=== PATIENT | female | born 1955 | race Caucasian/White ===

== ENCOUNTER 2018-11-25 09:00 | Day surgery (SDC) | payer OTHER ==
--- NOTE | 2018-11-24 16:20 | RAD REPORT ---
EXAM DESCRIPTION: RAD - Chest Pa And Lat (2 Views) - 11/24/2018 4:08 pm CLINICAL HISTORY: preop Chest pain. COMPARISON: CHEST SINGLE VIEW dated 03/23/2011 FINDINGS: The lungs are clear. The heart is normal in size. No displaced fractures. IMPRESSION: No acute or concerning finding suspected.
[2018-11-24 16:24] LABS: Absolute Lymphocytes (CBC) 2.5 K/uL (0.7-4.9); Absolute Monocytes 0.6 K/uL (0.1-1.3); Absolute Neutrophil 4.8 K/uL (1.8-8.0); Basophils % 0.4 % (0-1.3); Hematocrit 44.2 % (36.0-45.0); Lymphocytes % 30.5 % (15.3-44.8); MPV 7.5 fL (7.6-11.3); Monocytes % 7.9 % (3.3-12.3)
[2018-11-24 16:28] LABS: Protime INR 1.01
[2018-11-24 16:33] LABS: Potassium 4.3 mmol/L (3.5-5.1)
--- NOTE | 2018-11-25 07:40 | EKG ---
Test Date: 2018-11-24 Test Time: 15:53:44 X Ray Service Technician: ASIYA MEASUREMENT RESULTS: Intervals: Rate: 68 RI: 174 QRSD: 80 QT: 414 QTc: 440 [place]: P: 48 RI: 174 QRS: 29 T: 68 INTERPRETIVE STATEMENTS: Normal sinus rhythm Cannot rule out Anterior infarct, age undetermined Abnormal ECG Compared to ECG 09/17/2001 18:04:00 No significant changes Electronically Signed On 11-25-18 07:38:55 CDT by Weston Cook
--- OUTSIDE RECORDS SUMMARY | 2018-11-25 09:04 | XMS REPORT ---
:1955 Author Organization [employer] Care Team Providers Name Role Phone Samm Corrales Provider Role Unavailable Allergies No Known Allergies Problems Problem Type Condition Code Onset Dates Condition Status Problem Arthritis of knee, left M17.12 Active Problem Arthritis of knee, right M17.11 Active Problem Tear of right rotator cuff, M75.101 Active unspecified tear extent Medications No Known Medications Results No Known Results Summary Purpose [employer] Submission
--- OUTSIDE RECORDS SUMMARY | 2018-11-25 09:04 | XMS REPORT ---
:1955 Author Organization [employer] Care Team Providers Name Role Phone Samm Corrales Provider Role Unavailable Allergies, Adverse Reactions, Alerts Substance Reaction Event Type N.K.D.A. Info Not Available Non Drug Allergy Problems Problem Type Condition Code Onset Dates Condition Status Assessment Tear of right rotator cuff, M75.101 Active unspecified tear extent Problem Arthritis of knee, left M17.12 Active Problem Arthritis of knee, right M17.11 Active Problem Tear of right rotator cuff, M75.101 Active unspecified tear extent Assessment Acute bursitis of right shoulder M75.51 Active Assessment Impingement syndrome of right M75.41 Active shoulder Assessment Pain, joint, shoulder, right M25.511 Active Medications Medication Code Code Instructions Start End Status Dosage System Date Date Montelukast [facility] 54151822408 10 MG Oral Active not Sodium defined Rosuvastatin ND 08001266025 40 MG Oral Active not Calcium defined Levothyroxine ND 76817168861 50 MCG Oral Active not Sodium defined Results No Known Results Summary Purpose [employer] Submission
--- OUTSIDE RECORDS SUMMARY | 2018-11-25 09:04 | XMS REPORT ---
:1955 Author Organization [employer] Care Team Providers Name Role Phone Samm Corrales Provider Role Unavailable Allergies, Adverse Reactions, Alerts Substance Reaction Event Type N.K.D.A. Info Not Available Non Drug Allergy Problems Problem Type Condition Code Onset Dates Condition Status Problem Arthritis of knee, right M17.11 Active Problem Arthritis of knee, left M17.12 Active Assessment Arthritis of knee, left M17.12 Active Assessment Arthritis of knee, right M17.11 Active Assessment Acute pain of left knee M25.562 Active Assessment Acute pain of right knee M25.561 Active Medications Medication Code Code Instructions Start End Status Dosage System Date Date Montelukast [facility] 46602652003 10 MG Oral Active not defined Sodium Medrol ND 55405884650 4 MG Orally as Feb 17, Active as directed directed 2018 Ketoconazole ND 86157675575 2 % External Active not defined Tramadol HCl ND 98425061612 50 MG Orally Feb 17, Active 1 tablet as every 6 hrs 2018 needed Levothyroxine ND 69206736444 50 MCG Oral Active not defined Sodium Rosuvastatin ND 59661372921 40 MG Oral Active not defined Calcium Results No Known Results Summary Purpose [facility]
--- OUTSIDE RECORDS SUMMARY | 2018-11-25 09:04 | XMS REPORT ---
[...] syndrome of right M75.41 Active shoulder Assessment Acute pain of right shoulder M25.511 Active Medications Medication Code Code Instructions Start End Status Dosage System Date Date Rosuvastatin ND 51968469429 40 MG Oral Active not Calcium defined Montelukast ND 98460167442 10 MG Oral Active not Sodium defined Levothyroxine ND 03622803793 50 MCG Oral Active not Sodium defined Ketoconazole ND 77155842588 2 % External Active not defined Results Name Result Date Reference Range Unit Abnormality Flag MRI : Shoulder, right Summary Purpose [employer]Works Submission
--- OUTSIDE RECORDS SUMMARY | 2018-11-25 09:04 | XMS REPORT ---
[...] End Status Dosage System Date Date Rosuvastatin [facility] 79998242926 40 MG Oral Active not Calcium defined Montelukast [facility] 38971219114 10 MG Oral Active not Sodium defined Levothyroxine ND 88468322290 50 MCG Oral Active not Sodium defined Results No Known Results Summary Purpose [employer]ClinicalWorks Submission
--- OUTSIDE RECORDS SUMMARY | 2018-11-25 09:04 | XMS REPORT ---
[...] Medications Medication Code Code Instructions Start End Date Status Dosage System Date Levothyroxine [facility] 10857880847 50 MCG Oral Active not Sodium defined Mobic ND 45995431872 7.5 MG Orally August Active 1 tablet Once a day 2018 Rosuvastatin ND 12460627282 40 MG Oral Active not Calcium defined Montelukast ND 68456813522 10 MG Oral Active not Sodium defined Results No Known Results Summary Purpose [employer]Works Submission
[2018-11-25] MEDS ORDERED: Ringers Lactate 1,000 ML IV ONE ×2 (09:33→12:30)
[2018-11-25] MEDS ORDERED: CEFAZOLIN/SWI 2gm 2 GM/20 ML SYR ONE (09:34)
[2018-11-25] MEDS ORDERED: PROPOFOL 200 MG/20 ML VIAL IV ONE (10:02)
[2018-11-25] MEDS ORDERED: ROCURONIUM 50 MG/5 ML VIAL IV ONE (10:02)
[2018-11-25] MEDS ORDERED: MIDAZOLAM HCL 2 MG/2 ML INJ ONE (10:02)
[2018-11-25] MEDS ORDERED: FENTANYL CITR 100 MCG/2 ML ONE (10:02)
[2018-11-25] MEDS ORDERED: LIDOCAINE 2% MPF 5 ML VIAL ONE (10:02)
[2018-11-25] MEDS ORDERED: NS 0.9% VIAL 10 ML ONE ×2 (10:03→12:30)
[2018-11-25] MEDS ORDERED: EPINEPHRINE/PF 1 MG/ML AMP ONE (10:15)
[2018-11-25] MEDS ORDERED: DEXAMETHASONE 10 MG/ML VIAL ONE ×2 (10:44→11:39)
[2018-11-25] MEDS ORDERED: ROPLVACAINE HCL 20 ML ONE (10:44)
[2018-11-25] MEDS ORDERED: EPHEDRINE SULF 50 MG/ML VIAL ONE (11:32)
[2018-11-25] MEDS ORDERED: ONDANSETRON 4 MG/2 ML VIAL ONE (11:37)
[2018-11-25] MEDS ORDERED: Phenylephrine HCl 10 MG/ML 1 ML VIAL ONE (12:29)
--- NOTE | 2018-11-25 13:04 | P.BOP ---
Preoperative diagnosis: right rotator cuff tear, bicipital tenosynovitis, impingement syndrome Postoperative diagnosis: same, right shoulder SLAP tear Primary procedure: right shoulder arthroscopic rotator cuff repair Secondary procedure: right shoulder arthroscopic SLAP debridement w/ biceps tenotomy Other procedure(s): right shoulder arthroscopic subacromial decompression Veterans Adviser: NONE,NONE Estimated blood loss: <10 cc Specimen: none Findings: see dictation Anesthesia: General Complications: None Implants: 1- 5.5 mm Arthrex corkscrew, 1- 4.75 mm Arthrex swivelock Fluids & blood products: per anethesia record Transferred to: Recovery Room Condition: Good
--- NOTE | 2018-11-25 13:58 | RAD REPORT ---
EXAM DESCRIPTION: RAD - Shoulder 1 View - 11/25/2018 1:43 pm CLINICAL HISTORY: s/p R RCR, SAD COMPARISON: Shoulder Rt Wo Cont dated 07/09/2018 FINDINGS: Postoperative single projection of the right shoulder is submitted. AC joint degenerative changes are noted. Mild glenohumeral arthritic changes also present. No fractures suspected.
[2018-11-25 15:34] VITALS: TEMP 97.3
[2018-11-25 15:36] VITALS: BP 148/68; O2SAT 95
--- NOTE | 2018-11-26 13:29 | OP ---
Date of Procedure: 11/25/2018 Surgeon: Samm Corrales MD Preoperative Diagnoses: 1.Right shoulder rotator cuff tear. 2.Right shoulder bicipital tenosynovitis. 3.Right shoulder impingement syndrome. Postoperative Diagnoses: 1.Right shoulder rotator cuff tear. 2.Right shoulder bicipital tenosynovitis. 3.Right shoulder impingement syndrome. 4.Right shoulder SLAP tear. Procedure Performed: 1.Right shoulder arthroscopic rotator cuff repair. 2.Right shoulder arthroscopic biceps tenotomy with SLAP tear debridement. 3.Right shoulder arthroscopic subacromial decompression. Anesthesia: General endotracheal. Fluids: Per Anesthesia record. Estimated Blood Loss: Less than 10 cc. Implants: 1.One 5.5 mm Arthrex corkscrew. 2.One 4.75 mm Arthrex SwiveLock. Complications: None. Indication For Procedure: Erin is a 63-year-old female, who presented to my clinic with signs, sym ptoms, and MRI findings consistent with a right shoulder rotator cuff tear, bicipital tenosynovitis, and impingement syndrome. The patient failed conservative treatment measures including corticosteroi d injection as well as a home exercise program. I discussed with the patient at length risks and keila efits associated with operative and nonoperative treatment. She expressed understanding and elected to proceed with operative treatment. Description Of Procedure: After informed consent was obtained, the patient was identified in the pre operative holding area. The right upper extremity was marked. The patient was brought back to the P ACU and underwent interscalene block to the right upper extremity performed by Anesthesia. She was t hen taken back to the operating room, transferred to the operating table in a supine fashion and plac ed under general endotracheal anesthesia. She was placed in the beach chair position with her extrem ities well padded. The right upper extremity was then prepped and draped in the usual sterile fashio n. A time-out was initiated. The correct patient and procedure were confirmed and identified. The patient did receive her preoperative prophylactic antibiotics. The right upper extremity was then ra nged she has near full range of motion without any significant instability noted to the ri t shoulder. Attention was first taken . A spinal needle was introduced into the posteri or portal position and shoulder joint was injected with 30 cc of normal saline to distend the capsule . Posterior portal was created as well as an anterior portal. Diagnostic arthroscopy was performed. The patient was noted to have some inflammatory changes around her superior labrum as wel l as noted to be type 2 SLAP tear. There was also noted to be some hyperemia within the biceps tendo n as well as the anterior capsule and the rotator interval was debrided. Using a meniscal bitter, bi ceps tenotomy was performed. The biceps was released fully. Next, attention was taken. The anterio r and posterior labrum was found to be stable to probe. There were no loose bodies within the axilla ry pouch. Subscapularis was found to be intact. However, the articular surface of the anterior supr aspinatus and the lateral portal was created. There was noted to be a full-thickness tear joint. The area was marked using PDS suture. The arthroscope was then brought into subacromial spa ce. Subacromial bursectomy was performed. The area was marked. A PDS suture was identified and the re was noted to be a full-thickness tear with anterior supraspinatus tear. The rotator cu ff tear was debrided using arthroscopic shaver tuberosity. The area of the footprint was then debrided using arthroscopic shaver to create a bleeding bony bed. A lateral cannula was then pl aced. A single 5.5-mm Arthrex corkscrew was placed just lateral to the articular surface was double loaded anchor. Sutures were then passed through the supraspinatus tear in an anterior to posterior fashion and horizontal mattress type fashion. The sutures were then tied. all 4 sutures were brought laterally for lateral row fixation. There was good overall reduction of the s upraspinatus. There was a small dog-ear which was tied down with the central suture line from the la teral row anchor and there was good overall reduction of the rotator cuff tear. Next, there was note d to be some fraying of the coracoacromial ligament. Undersurface of the acromion was then debrided using an arthroscopic shaver and radiofrequency ablator. A subacromial decompression was performed u sing arthroscopic gabriela as well as radiofrequency ablator. Acromioplasty was performed using arthrosc opic gabriela and to a point where there was no undersurface of the acromion spurring. There was no impi ngement noted. The arthroscopic instruments were then removed without complication and the wound and were approximated using a 2-0 Vicryl and portals were approximated using a 3-0 Monocryl. Sterile dressings were applied. The patient was placed in a shoulder immobilizer, awakened, and tra nsferred to PACU in stable condition. Postoperative Plan: The patient will begin physical therapy in 2 weeks and follow the small rotator cuff repair protocol and she will be nonweightbearing. She will follow up later this week for wound check. NED/NEIDA Voice ID: [id number] Report ID: [id number]
== END 2018-11-25 14:45 | disposition home or self-care (01) ==
LOC: OR 09:00
PROVIDERS: ATTEND Orthopaedic Surgery Sports Medicine
PROC: 0RNJ4ZZ Release Right Shoulder Joint, Percutaneous Endoscopic Approach (ICD-10-PCS; 2018-11-25)
PROC: 0LM14ZZ Reattachment of Right Shoulder Tendon, Percutaneous Endoscopic Approach (ICD-10-PCS; principal; 2018-11-25 10:45)
DX: M75.121 Complete rotator cuff tear or rupture of right shoulder, not specified as traumatic (principal); M75.21 Bicipital tendinitis, right shoulder; M75.41 Impingement syndrome of right shoulder; S43.431A Superior glenoid labrum lesion of right shoulder, initial encounter; X58.XXXA Exposure to other specified factors, initial encounter; E78.00 Pure hypercholesterolemia, unspecified; Z79.899 Other long term (current) drug therapy
CPT/HCPCS: 36415; 71046; 73020; 80048; 85025; 85610; 85730; 93005; J0171; J0690; J1100; J2250; J2370; J2405; J2704; J2795; J3010

== ENCOUNTER 2021-02-08 14:32 | Emergency (ER) | payer BC, OTHER ==
--- OUTSIDE RECORDS SUMMARY | 2021-02-08 14:35 | XMS REPORT | Continuity of Care Document ---
:1955 Author Organization [facility] t Address [address] [place] [address] Care Team Providers Name Role Phone Doctor Unassigned, Name Attending Clinician Unavailable Problems Condition Condition Condition Status Onset Resolution Last Treating Co mments Source Name Details Category Date Date Treatment Clinician Date Arthritis Arthritis Problem Active [facility], [facility] Arthritis Arthritis Problem Active [facility], [facility] Tear of Tear of Problem Active [facility] right right [facility] - rotator rotator [facility] cuff, cuff, l unspecifie unspecifie Ou tpati d tear d tear ent extent extent Clinics Primary Primary Problem Active [facility] osteoarthr osteoarthr [facility] - itis of itis of [facility] both knees both knees l Outpati ent Clinics Allergies, Adverse Reactions, Alerts This patient has no known allergies or adverse reactions. Medications Ordered Filled Start Stop Current Ordering Indication Dosage Frequency Signature Comments Components Source Medication Medication Date Date Medication? Clinician (SIG) Name Name Durolane Durolane 2018-06 Yes Samm as [facility] Cor[facility] directed [facility] Rosuvastati Rosuvastati Yes Samm not [facility] n Calcium n Calcium [place]es defined [facility] Levothyroxi Levothyroxi Yes Samm not [facility] ne Sodium ne Sodium [place]es defined [facility] Montelukast Montelukast Yes Samm not [facility] Sodium Sodium [place] defined [facility] Fluoxetine Fluoxetine Yes Samm TAKE [address] [facility] HCl HCl Corrales CAPSULE BY [facility] - MOUTH ONCE [facility] DAILY [facility] ent [facility] Procedures This patient has no known procedures. Encounters Start End Encounter Admission Attending Care Care Encounter Source Date/Time Date/Time Type Type Clinicians Facility Department ID 2020-07-19 2020-07-19 Orders Doctor ROLAND [id number] 00:00:00 00:00:00 Only Unassigned, HITESH [id number] [place] [facility] [id number] 2020-01-17 2020-01-17 [facility] [id number] [facility] 11:00:00 11:00:00 [facility] 2019-12-30 2019-12-30 [facility] [id number] [facility] 15:30:00 15:30:00 [facility] 2019-12-22 2019-12-22 [facility] [id number] [facility] [address] 11:00:00 11:00:00 t [facility] 2019-12-06 2019-12-06 [facility] [id number] [facility] 13:39:00 13:39:00 t [facility] 2019-11-10 2019-11-10 [facility] [id number] [facility] 14[facility]42:00 14:42:00 t [facility] 2019-11-04 2019-11-04 [facility] [id number] [facility] 15[facility]45:00 15:45:00 t [facility] 2019-09-06 2019-09-06 [facility] [id number] [facility] 15:30:00 15:30:00 t [facility] ent Clinics 2019-04-12 2019-04-12 [facility] [id number] [facility] [address] 11:44:00 11:44:00 t [facility] 2019-02-23 2019-02-23 [facility] [id number] [facility] 16:22:00 16:22:00 t [facility] 2019-02-23 2019-02-23 [facility] [id number] [facility] 15:30:00 15:30:00 t [facility] 2019-02-09 2019-02-09 [facility] [id number] [facility] 13:26:00 13:26:00 t [facility] ent Clinics 2019-02-03 2019-02-03 [facility] [id number] [facility] 10:10:00 10:10:00 t [facility] 2019-01-12 2019-01-12 [facility] [id number] [address] 16[facility]53:00 16:53:00 t [facility] Clinics 2019-01-12 2019-01-12 [facility] [id number] 15:00:00 15:00:00 t [facility] 2019-01-05 2019-01-05 [facility] [id number] [address] 12[facility]43:00 12:43:00 t [facility] Clinics 2019-01-04 2019-01-04 [facility] [id number] [facility] 16:36:00 16:36:00 t [facility] ent Clinics 2018-12-17 2018-12-17 [facility] [id number] [address] 10:00:00 10:00:00 t [facility] 2018-12-08 2018-12-08 [facility] [id number] 08[facility]40:00 08:40:00 t [facility] 2018-11-27 2018-11-27 [facility] [id number] [facility] 10:00:00 10:00:00 t [facility] 2018-10-26 2018-10-26 [facility] [id number] [facility] 15:30:00 15:30:00 t [facility] 2018-09-14 2018-09-14 [facility] [id number] [address] 15:30:00 15:30:00 t [facility] 2018-07-17 2018-07-17 [facility] [id number] [facility] [address] 08:30:00 08:30:00 t [facility] 2018-07-09 2018-07-09 [facility] [id number] [facility] 20:39:00 20:39:00 t [facility] 2018-07-08 2018-07-08 [facility] [id number] [address] 12:30:00 12:30:00 t [facility] Clinics 2018-07-07 2018-07-07 Outpatient Catrachita Domínguezt [id number] [facility] 15:00:00 15:00:00 t [facility] 2018-02-17 2018-02-17 Outpatient Catrachita Villavicencio [id number] [facility] 08:30:00 08:30:00 t Bone [facility] Results This patient has no known results.
--- NOTE | 2021-02-08 16:07 | RAD REPORT ---
EXAM DESCRIPTION: RAD - Foot Left 3 View - 02/08/2021 3:56 pm CLINICAL HISTORY: PAIN COMPARISON: No comparisons FINDINGS: No acute fracture seen. Mild soft tissue swelling is seen about the forefoot. Mild hallux valgus is present. Large calcaneal spurs are evident.
--- NOTE | 2021-02-08 16:17 | EDPHYS ---
Physician Documentation [facility] Name: Erin Bray Age: 65 yrs Sex: Female : 1955 Arrival Date: 02/08/2021 Time: 14:36 Bed Waiting Private MD: ED Physician Raymond Mckeon HPI: 02/08 16:11 This 65 yrs old Female presents to ER via Wheelchair with complaints of Foot rn Pain. 16:11 The patient presents with an injury, pain. The complaints affect the left foot. rn Context: The problem was sustained at work, resulted from Walking. Onset: The symptoms/episode began/occurred today. Modifying factors: The symptoms are alleviated by elevation of extremity, sitting, the symptoms are aggravated by weight bearing, movement. Associated signs and symptoms: Pertinent negatives: fever, swelling, weakness. Severity of symptoms: At their worst the symptoms were moderate, in the emergency department the symptoms have improved. The patient has not experienced similar symptoms in the past. The patient has not recently seen a physician. Reports at work, walking, stepped on floor and felt and heard a pop in the left bottom foot. Reports pain to bottom left foot that improves with rest and elevation, hurts more with ambulation. No swelling or discoloration.. Historical: - Allergies: 15:04 No Known Allergies; kg - Home Meds: 15:04 Ethel 60 mg Oral tab [Active]; levothyroxine 50 mcg tab 1 tab once daily [Active]; kg Lipitor 40 mg Oral tab 1 tab once daily [Active]; Prozac 20 mg Oral cap 1 cap bedtime [Active]; Singulair 10 mg Oral tab 1 tab once daily [Active]; oxybutynin chloride Oral [Active]; - PMHx: 15:04 High Cholesterol; seasonal allergies; Hypothyroidism; stress incontence; night sweats; kg - PSHx: 15:04 Right rotator sx; Left wrist sx; Right knee sx; kg - Immunization history:: Adult Immunizations not up to date, Client reports having NOT received the Covid vaccine. - Social history:: Smoking status: Patient denies any tobacco usage or history of. - Family history:: not pertinent. - Hospitalizations: : No recent hospitalization is reported. ROS: 16:11 Constitutional: Negative for fever, chills, and weight loss, MS/Extremity: Positive for rn injury and pain to left bottom foot Neuro: Negative for numbness and tingling Exam: 16:11 Constitutional: This is a well developed, well nourished patient who is awake, alert, rn and in no acute distress. MS/ Extremity: Pulses equal, no cyanosis. Neurovascular intact. Full, normal range of motion. Mild tenderness along plantar surface of foot without any discoloration or open wounds. No bony tenderness. Vital Signs: 15:01 Resp 20; Weight 136.08 kg (R); Height 5 ft. 7 in. (170.18 cm) (R); Pain 0/10; kg 15:09 BP 159 / 57; Pulse 66; Resp 20; Temp 97.7(TE); Pulse Ox 95% on R/A; kg 15:01 Body Mass Index 46.99 (136.08 kg, 170.18 cm) kg MDM: 16:11 Differential diagnosis: fracture, sprain, arthritis. Differential diagnosis: Sprain, rn tendon injury, partial tear. Data reviewed: vital signs, nurses notes. Test interpretation: by ED physician or midlevel provider: plain radiologic studies, X-ray left foot negative for acute fracture dislocation. Counseling: I had a detailed discussion with the patient and/or guardian regarding: the historical points, exam findings, and any diagnostic results supporting the discharge/admit diagnosis, radiology results, the need for outpatient follow up, to return to the emergency department if symptoms worsen or persist or if there are any questions or concerns that arise at home. Special discussion: I discussed with the patient/guardian in detail that at this point there is no indication for admission to the hospital. It is understood, however, that if the symptoms persist or worsen the patient needs to return immediately for re-evaluation. ED course: Recommend RICE therapy, told if symptoms do not improve in 10 to 14 days to seek orthopedic or podiatry consultation with possible MRI.. 16:16 Patient medically screened. rn 02/08 15:30 Order name: Foot Left 3 View; Complete Time: 16:11 EDMS Administered Medications: No medications were administered Disposition Summary: 02/08/21 16:16 Discharge Ordered Location: Home rn Problem: new rn Symptoms: have improved rn Condition: Stable rn Diagnosis - Other sprain of left foot rn Followup: rn - With: Private Physician - When: As needed - Reason: Recheck today's complaints, Re-evaluation by your physician Discharge Instructions: - Discharge Summary Sheet rn - Foot Sprain rn Forms: - Medication Reconciliation Form rn - Thank You Letter rn - Antibiotic administrative intern - Prescription Opioid Use rn Signatures: Dispatcher [employer] Raymond Amin MD MD rn Graham, Kristen, RN RN kg Corrections: (The following items were deleted from the chart) 15:30 15:05 Ankle Left 3 View+RAD.RAD.BRZ ordered. EDNV RICKINV
--- NOTE | 2021-02-08 16:17 | ER ---
Nurse's Notes [facility] Name: Erin Bray Age: 65 yrs Sex: Female : 1955 Arrival Date: 02/08/2021 Time: 14:36 Bed Waiting Private MD: Diagnosis: Other sprain of left foot Presentation: 02/08 15:01 Chief complaint: Patient states: Left foot pain. Pt stated, " I was walking and heard a kg loud pop and had instant pain." Pt denies, twisting or falling. This happened at 14:00. Coronavirus screen: Client denies travel out of the [place] in the last 14 days. At this time, unable to obtain information related to travel outside the [place] At this time, the client does not indicate any symptoms associated with coronavirus-19. Ebola Screen: Patient negative for fever greater than or equal to 101.5 degrees Fahrenheit, and additional compatible Ebola Virus Disease symptoms Patient denies exposure to infectious person. Patient denies travel to an Ebola-affected area in the 21 days before illness onset. No symptoms or risks identified at this time. Initial Sepsis Screen: Does the patient meet any 2 criteria? No. Patient's initial sepsis screen is negative. Does the patient have a suspected source of infection? No. Patient's initial sepsis screen is negative. Risk Assessment: Do you want to hurt yourself or someone else? Patient reports no desire to harm self or others. Onset of symptoms was February 08, 2021 at 14:00. 15:01 Method Of Arrival: Wheelchair kg 15:01 Acuity: YOUNG 4 kg Triage Assessment: 15:04 General: Appears in no apparent distress. Behavior is calm, cooperative, appropriate kg for age, quiet. Pain: Complains of pain in Left ankle Pain currently is 0 out of 10 on a pain scale. at worst was 10 out of 10 on a pain scale. level that patient reports is acceptable is 0 out of 10 on a pain scale. Quality of pain is described as. Historical: - Allergies: 15:04 No Known Allergies; kg - Home Meds: 15:04 Ethel 60 mg Oral tab [Active]; levothyroxine 50 mcg tab 1 tab once daily [Active]; kg Lipitor 40 mg Oral tab 1 tab once daily [Active]; Prozac 20 mg Oral cap 1 cap bedtime [Active]; Singulair 10 mg Oral tab 1 tab once daily [Active]; oxybutynin chloride Oral [Active]; - PMHx: 15:04 High Cholesterol; seasonal allergies; Hypothyroidism; stress incontence; night sweats; kg - PSHx: 15:04 Right rotator sx; Left wrist sx; Right knee sx; kg - Immunization history:: Adult Immunizations not up to date, Client reports having NOT received the Covid vaccine. - Social history:: Smoking status: Patient denies any tobacco usage or history of. - Family history:: not pertinent. - Hospitalizations: : No recent hospitalization is reported. Screenin:14 Abuse screen: Denies threats or abuse. Denies injuries from another. Nutritional ss screening: No deficits noted. Tuberculosis screening: Never had TB. Fall Risk None identified. Assessment: 16:14 Reassessment: Patient appears in no apparent distress at this time. Patient and/or ss family updated on plan of care and expected duration. Pain level reassessed. Patient is alert, oriented x 3, equal unlabored respirations, skin warm/dry/pink. Vital Signs: 15:01 Resp 20; Weight 136.08 kg (R); Height 5 ft. 7 in. (170.18 cm) (R); Pain 0/10; kg 15:09 BP 159 / 57; Pulse 66; Resp 20; Temp 97.7(TE); Pulse Ox 95% on R/A; kg 15:01 Body Mass Index 46.99 (136.08 kg, 170.18 cm) kg ED Course: 14:36 Patient arrived in ED. mr 15:03 Triage completed. kg 15:04 Arm band placed on. kg 15:23 Raymond Mckeon MD is Attending Physician. rn 15:55 Foot Left 3 View In Process Unspecified. EDMS 16:14 Patient has correct armband on for positive identification. ss 16:15 No provider procedures requiring assistance completed. Patient did not have IV access ss during this emergency room visit. Administered Medications: No medications were administered Outcome: 16:16 Discharge ordered by . rn 16:30 Discharged to home via wheelchair, with family. ss 16:30 Condition: good 16:30 Discharge instructions given to patient, family, Instructed on discharge instructions, follow up and referral plans. Demonstrated understanding of instructions, follow-up care. 16:31 Patient left the ED. ss Signatures: Dispatcher [employer] Beryl Henry mr Raymond Mckeon MD MD rn Smirch, Shelby, RN RN Anastasia Joshi RN RN kg
[2021-02-08 16:38] VITALS: BP 159/57; TEMP 97.7; O2SAT 95
== END 2021-02-08 16:31 | disposition home or self-care (01) ==
LOC: ER 14:32
DX: S93.692A Other sprain of left foot, initial encounter (principal); X58.XXXA Exposure to other specified factors, initial encounter; Y93.01 Activity, walking, marching and hiking; E03.9 Hypothyroidism, unspecified; E78.00 Pure hypercholesterolemia, unspecified
CPT/HCPCS: 99283

== ENCOUNTER → 2023-07-30 | Emergency (ER) | payer OTHER ==
--- OUTSIDE RECORDS SUMMARY | 2023-07-30 00:17 | XMS REPORT | Continuity of Care Document ---
Author Name Unknown Address [address] [place] [address] [facility] thconnect Address [address] [place] [address] Care Team Providers Care Digital Field Service Technician Name Role Phone MARCELA BOYD Primary Care Physician Unav ailable [email or web address]_S Attending Clinician ALFIE Yoder Attending Clinician Unavailable Roxy Temple MA Attending Clinician Alfie Ching MD Attending Clinician Doctor Unassigned, [place] Attending Clinician U navailable ROSARIO_[email or web address]_S Admitting Clinician Cesar montero Payers Payer Name Policy Type Policy Number Effective Date Expiration Date Source MEDIC[place]: [employer] [id number] 2021-04-23 00:00:00 [employer] INSURANCE [employer] (MEDICARE SUPPLEMENT) [id number] AETNA 53 [id number] [facility] BLUE ESSENTIALS HMO [id number] 2020-02-22 00:00:00 Blue Cross Blue Shield of [place] C1 [id number] [facility] [place] [address] [id number] [facility] Problems Condition Name Condition Details Condition Category Status Onset Date Resolution Date Last Treatment Date Treating Clinician Comments Source Rupture of right rotator cuff Rupture of right rotator cuff Disease Active 07-12 00:00: 00 [facility] [id number] Primary osteoarthr itis, left shoulder Problem Active [facility] [id number] Tear of left rotator cuff, unspecifie d tear extent, unspecifie d whether traumatic Problem Active [facility] Arthritis of right knee Arthritis of right knee Problem Active [facility] Arthritis of left knee Arthritis of knee, left Problem Active [facility] [id number] Primary osteoarthr itis of left knee Problem Active [facility] [id number] Tear of right rotator cuff, unspecifie d tear extent Problem Active [facility] [id number] Primary osteoarthr itis of both knees Problem Active [facility] Osteoarthr itis of knee Osteoarthr itis of knee, unilateral Problem Active [facility] [id number] Primary osteoarthr itis of right knee Problem Active [facility] Arthritis of both knees Arthritis of both knees Problem [facility] Allergies, Adverse Reactions, Alerts Allergy Name Allergy Type Status Severity Reaction(s) Onset Date Inactive Date Treating Clinician Comments Source MELOXICA M DRUG INGREDI Active Unknown-Cmnt 2020-06 00:00: 00 [facility] meloxica m meloxica m Active Unknown [facility] NO KNOWN ALLERGIE S Drug Class Active [facility] Social History Social Habit Start Date Stop Date Quantity Comments Source History of Tobacco Use [facility] Sex Assigned At [facility] Tobacco use and exposure 2020-07-19 00:00:00 2020-07-19 00:00:00 Smokeless tobacco non-user [facility] Alcohol intake 2020-07-19 00:00:00 2020-07-19 00:00:00 Current non-drinker of alcohol (finding) [facility] Smoking Status Start Date Stop Date Source Never Smoker [facility] Medications Ordered Medication Name Filled Medication Name Start Date Stop Date Current Medication? Ordering Clinician Indication Dosage Frequency Signature (SIG) Comments Components Source Kenalog (Triamcinol one) Kenalog (Triamcinol one) 2022-06 0-24 00:00: 00 No 1mL [facility] BUPivacaine HCl BUPivacaine HCl 2022-06 0-24 00:00: 00 No 4mL [facility] Kenalog (Triamcinol one) Kenalog (Triamcinol one) 2022-06 0-24 00:00: 00 No 1mL [facility] BUPivacaine HCl BUPivacaine HCl 2022-06 0-24 00:00: 00 No 4mL [facility] Kenalog (Triamcinol one) Kenalog (Triamcinol one) 2022-06 0-24 00:00: 00 No 1mL [facility] BUPivacaine HCl BUPivacaine HCl 2022-06 0-24 00:00: 00 No 4mL [facility] Kenalog (Triamcinol one) Kenalog (Triamcinol one) 2022-06 0-24 00:00: 00 No 1mL [facility] BUPivacaine HCl BUPivacaine HCl 2022-06 0-24 00:00: 00 No 4mL [facility] Kenalog (Triamcinol one) Kenalog (Triamcinol one) 2022-06 0-24 00:00: 00 No 1mL [facility] BUPivacaine HCl BUPivacaine HCl 2022-06 0-24 00:00: 00 No 4mL [facility] Kenalog (Triamcinol one) Kenalog (Triamcinol one) 2022-06 0-24 00:00: 00 No 1mL [facility] BUPivacaine HCl BUPivacaine HCl 2022-06 0-24 00:00: 00 No 4mL [facility] Kenalog (Triamcinol one) Kenalog (Triamcinol one) 7-25 00:00: 00 No 1mL [facility] Bupivicaine [place] Bupivicaine [place] 0 01-14 00:00: 00 No 4mL [facility] Bupivicaine [place] Bupivicaine [place] 01-14 00:00: 00 No 4mL [facility] Kenalog (Triamcinol one) Kenalog (Triamcinol one) 01-14 00:00: 00 No 1mL [facility] Kenalog (Triamcinol one) Kenalog (Triamcinol one) 0 01-14 00:00: 00 No 1mL [facility] Bupivicaine [place] Bupivicaine [place] 01-14 00:00: 00 No 4mL [facility] Bupivicaine [place] Bupivicaine [place] 01-14 00:00: 00 No 4mL [facility] Kenalog (Triamcinol one) Kenalog (Triamcinol one) 0 01-14 00:00: 00 No 1mL [facility] Kenalog (Triamcinol one) Kenalog (Triamcinol one) 01-14 00:00: 00 No 1mL [facility] Bupivicaine [place] Bupivicaine [place] 01-14 00:00: 00 No 4mL [facility] Bupivicaine [place] Bupivicaine [place] 0 01-14 00:00: 00 No 4mL [facility] Kenalog (Triamcinol one) Kenalog (Triamcinol one) 0 01-14 00:00: 00 No 1mL [facility] Bupivicaine [place] Bupivicaine [place] 0 10-08 00:00: 00 No 4mL [facility] Kenalog (Triamcinol one) Kenalog (Triamcinol one) 0 10-08 00:00: 00 No 1mL [facility] Bupivicaine [place] Bupivicaine [place] 2022-0 4-18 00:00: 00 No 4mL [facility] Kenalog (Triamcinol one) Kenalog (Triamcinol one) 0 4-18 00:00: 00 No 1mL [facility] Bupivicaine [place] Bupivicaine [place] 2022-0 4-18 00:00: 00 No 4mL [facility] Kenalog (Triamcinol one) Kenalog (Triamcinol one) 0 4-18 00:00: 00 No 1mL [facility] Bupivicaine [place] Bupivicaine [place] 0 8-16 00:00: 00 No 2.5mg [facility] Kenalog (Triamcinol one) Kenalog (Triamcinol one) 2021-0 8-16 00:00: 00 No 40mg [facility] Bupivicaine [place] Bupivicaine [place] 2021-0 8-16 00:00: 00 No 2.5mg [facility] Kenalog (Triamcinol one) Kenalog (Triamcinol one) 0 8-16 00:00: 00 No 40mg [facility] Kenalog (Triamcinol one) Kenalog (Triamcinol one) 2021-0 8-16 00:00: 00 No 40mg [facility] Bupivicaine [place] Bupivicaine [place] 2021-0 8-16 00:00: 00 No 2.5mg [facility] Kenalog (Triamcinol one) Kenalog (Triamcinol one) 2021-0 8-16 00:00: 00 No 40mg [facility] Bupivicaine [place] Bupivicaine [place] 2021-0 8-16 00:00: 00 No 2.5mg [facility] Kenalog (Triamcinol one) Kenalog (Triamcinol one) 2021-0 8-16 00:00: 00 No 40mg [facility] Bupivicaine [place] Bupivicaine [place] 2021-0 8-16 00:00: 00 No 2.5mg [facility] Ibuprofen 600 MG Ibuprofen 600 MG 0 -19 00:00: 00 No 1{table t} BID Ibuprofen 600 MG Kenalog (Triamcinol one) Kenalog (Triamcinol one) 0 - 00:00: 00 No 40mg [facility] Bupivicaine [place] Bupivicaine [place] 0 - 00:00: 00 No 2.5mg [facility] Ibuprofen 600 MG Ibuprofen 600 MG 0 - 00:00: 00 No 1{table t} BID Ibuprofen 600 MG Kenalog (Triamcinol one) Kenalog (Triamcinol one) 0 - 00:00: 00 No 40mg [facility] Bupivicaine [place] Bupivicaine [place] 0 - 00:00: 00 No 2.5mg [facility] Ibuprofen 600 MG Ibuprofen 600 MG 0 - 00:00: 00 No 1{table t} BID Ibuprofen 600 MG Kenalog (Triamcinol one) Kenalog (Triamcinol one) 0 11-08 00:00: 00 No 40mg [facility] Bupivicaine [place] Bupivicaine [place] 0 - 00:00: 00 No 2.5mg [facility] Ibuprofen 600 MG Ibuprofen 600 MG 0 11-08 00:00: 00 No 1{table t} BID Ibuprofen 600 MG Kenalog (Triamcinol one) Kenalog (Triamcinol one) 0 - 00:00: 00 No 40mg [facility] Bupivicaine [place] Bupivicaine [place] 0 -19 00:00: 00 No 2.5mg [facility] Ibuprofen 600 MG Ibuprofen 600 MG 0 -19 00:00: 00 No 1{table t} BID Ibuprofen 600 MG Kenalog (Triamcinol one) Kenalog (Triamcinol one) 11-08 00:00: 00 No 40mg [facility] Bupivicaine [place] Bupivicaine [place] 11-08 00:00: 00 No 2.5mg [facility] Ibuprofen 600 MG Ibuprofen 600 MG 0 11-08 00:00: 00 No 1{table t} BID Ibuprofen 600 MG Kenalog (Triamcinol one) Kenalog (Triamcinol one) 11-08 00:00: 00 No 40mg [facility] Bupivicaine [place] Bupivicaine [place] 11-08 00:00: 00 No 2.5mg [facility] Ibuprofen 600 MG Ibuprofen 600 MG 11-08 00:00: 00 No 1{table t} BID Ibuprofen 600 MG Kenalog (Triamcinol one) Kenalog (Triamcinol one) 11-08 00:00: 00 No 40mg [facility] Bupivicaine [place] Bupivicaine [place] 11-08 00:00: 00 No 2.5mg [facility] Ibuprofen 600 MG Ibuprofen 600 MG 11-08 00:00: 00 No 1{table t} BID Ibuprofen 600 MG Kenalog (Triamcinol one) Kenalog (Triamcinol one) 11-08 00:00: 00 No 40mg [facility] Bupivicaine [place] Bupivicaine [place] 11-08 00:00: 00 No 2.5mg [facility] FLUOXETINE 40 mg capsule 08-15 00:00: 00 Yes [id number] TAKE ONE (1) CAPSULE(S) BY MOUTH ONCE A DAY. [facility] FLUOXETINE 40 mg capsule 08-15 00:00: 00 Yes [id number] TAKE ONE (1) CAPSULE(S) BY MOUTH ONCE A DAY. [facility] FLUOXETINE 40 mg capsule 08-15 00:00: 00 Yes [id number] TAKE ONE (1) CAPSULE(S) BY MOUTH ONCE A DAY. [facility] FLUOXETINE 40 mg capsule 2021-0 2-23 00:00: 00 Yes [id number] TAKE ONE (1) CAPSULE(S) BY MOUTH ONCE A DAY. [facility] FLUOXETINE 40 mg capsule 2021-0 2-23 00:00: 00 Yes [id number] TAKE ONE (1) CAPSULE(S) BY MOUTH ONCE A DAY. [facility] oxybutynin XL 5 mg 24 hr tablet 2021-0 2-04 00:00: 00 Yes [id number] 5mg Take 1 tablet by mouth daily. [facility] oxybutynin XL 5 mg 24 hr tablet 2021-0 2-04 00:00: 00 Yes [id number] 5mg Take 1 tablet by mouth daily. [facility] oxybutynin XL 5 mg 24 hr tablet 2021-0 2-04 00:00: 00 Yes [id number] 5mg Take 1 tablet by mouth daily. [facility] oxybutynin XL 5 mg 24 hr tablet 2021-0 2-04 00:00: 00 Yes [id number] 5mg Take 1 tablet by mouth daily. [facility] oxybutynin XL 5 mg 24 hr tablet 2021-0 2-04 00:00: 00 Yes [id number] 5mg Take 1 tablet by mouth daily. [facility] oxybutynin XL 5 mg 24 hr tablet 2021-0 2-04 00:00: 00 Yes [id number] 5mg Take 1 tablet by mouth daily. [facility] Hyalgan 20 mg Hyalgan 20 mg 2020-06 2-21 00:00: 00 No 20mg [facility] Hyalgan 20 mg Hyalgan 20 mg 2020-06 2-21 00:00: 00 No 20mg [facility] Hyalgan 20 mg Hyalgan 20 mg 2020-06 2-21 00:00: 00 No 20mg [facility] Hyalgan 20 mg Hyalgan 20 mg 2020-06 2-21 00:00: 00 No 20mg [facility] Hyalgan 20 mg Hyalgan 20 mg 2020-06 2-21 00:00: 00 No 20mg [facility] Hyalgan 20 mg Hyalgan 20 mg 2020-06 2- 00:00: 00 No 20mg [facility] Hyalgan 20 mg Hyalgan 20 mg 2020-06 2- 00:00: 00 No 20mg [facility] Hyalgan 20 mg Hyalgan 20 mg 2020-06 2- 00:00: 00 No 20mg [facility] Hyalgan 20 mg Hyalgan 20 mg 2020-06 2- 00:00: 00 No 20mg [facility] Hyalgan 20 mg Hyalgan 20 mg 2020-06 2- 00:00: 00 No 20mg [facility] Hyalgan 20 mg Hyalgan 20 mg 2020-06 2- 00:00: 00 No 20mg [facility] Hyalgan 20 mg Hyalgan 20 mg 2020-06 2- 00:00: 00 No 20mg [facility] Hyalgan 20 mg Hyalgan 20 mg 2020-06 2- 00:00: 00 No 20mg [facility] Hyalgan 20 mg Hyalgan 20 mg 2020-06 2- 00:00: 00 No 20mg [facility] Hyalgan 20 mg Hyalgan 20 mg 2020-06 2- 00:00: 00 No 20mg [facility] Hyalgan 20 mg Hyalgan 20 mg 2020-06 2- 00:00: 00 No 20mg [facility] Hyalgan 20 mg Hyalgan 20 mg 2020-06 2-21 00:00: 00 No 20mg [facility] Hyalgan 20 mg Hyalgan 20 mg 2020-06 2-21 00:00: 00 No 20mg [facility] Hyalgan 20 mg Hyalgan 20 mg 2020-06 2-21 00:00: 00 No 20mg [facility] Hyalgan 20 mg Hyalgan 20 mg 2020-06 2-21 00:00: 00 No 20mg [facility] Hyalgan 20 mg Hyalgan 20 mg 2020-06 2-21 00:00: 00 No 20mg [facility] Hyalgan 20 mg Hyalgan 20 mg 2020-06 2-21 00:00: 00 No 20mg [facility] Hyalgan 20 mg Hyalgan 20 mg 2020-06 2- 00:00: 00 No 20mg [facility] Hyalgan 20 mg Hyalgan 20 mg 2020-06 2-14 00:00: 00 No 20mg [facility] Hyalgan 20 mg Hyalgan 20 mg 2020-06 2-14 00:00: 00 No 20mg [facility] Hyalgan 20 mg Hyalgan 20 mg 2020-06 2- 00:00: 00 No 20mg [facility] Hyalgan 20 mg Hyalgan 20 mg 2020-06 2- 00:00: 00 No 20mg [facility] Hyalgan 20 mg Hyalgan 20 mg 2020-06 2- 00:00: 00 No 20mg [facility] Hyalgan 20 mg Hyalgan 20 mg 2020-06 2- 00:00: 00 No 20mg [facility] Hyalgan 20 mg Hyalgan 20 mg 2020-06 2- 00:00: 00 No 20mg [facility] Hyalgan 20 mg Hyalgan 20 mg 2020-06 2- 00:00: 00 No 20mg [facility] Hyalgan 20 mg Hyalgan 20 mg 2020-06 2-14 00:00: 00 No 20mg [facility] Hyalgan 20 mg Hyalgan 20 mg 2020-06 2-14 00:00: 00 No 20mg [facility] Hyalgan 20 mg Hyalgan 20 mg 2020-06 2-14 00:00: 00 No 20mg [facility] Hyalgan 20 mg Hyalgan 20 mg 2020-06 2-14 00:00: 00 No 20mg [facility] Hyalgan 20 mg Hyalgan 20 mg 2020-06 2-14 00:00: 00 No 20mg [facility] Hyalgan 20 mg Hyalgan 20 mg 2020-06- 00:00: 00 No 20mg [facility] Hyalgan 20 mg Hyalgan 20 mg 2020-06- 00:00: 00 No 20mg [facility] Hyalgan 20 mg Hyalgan 20 mg 2020-06 00:00: 00 No 20mg [facility] Hyalgan 20 mg Hyalgan 20 mg 2020-06 00:00: 00 No 20mg [facility] Hyalgan 20 mg Hyalgan 20 mg 2020-06 00:00: 00 No 20mg [facility] Hyalgan 20 mg Hyalgan 20 mg 2020-06 00:00: 00 No 20mg [facility] Hyalgan 20 mg Hyalgan 20 mg 2020-06 00:00: 00 No 20mg [facility] Hyalgan 20 mg Hyalgan 20 mg 2020-06 00:00: 00 No 20mg [facility] Bupivicaine [place] Bupivicaine [place] 2020-06 2 00:00: 00 No 2.5mg [facility] Hyalgan 20 mg Hyalgan 20 mg 2020-06 00:00: 00 No 20mg [facility] Hyalgan 20 mg Hyalgan 20 mg 2020-06 2- 00:00: 00 No 20mg [facility] Kenalog (Triamcinol one) Kenalog (Triamcinol one) 2020-06 2- 00:00: 00 No 40mg [facility] Bupivicaine [place] Bupivicaine [place] 2020-06 2- 00:00: 00 No 2.5mg [facility] Kenalog (Triamcinol one) Kenalog (Triamcinol one) 2020-06 2- 00:00: 00 No 40mg [facility] Bupivicaine [place] Bupivicaine [place] 2020-06 2 00:00: 00 No 2.5mg [facility] Hyalgan 20 mg Hyalgan 20 mg 2020-06 2 00:00: 00 No 20mg [facility] Hyalgan 20 mg Hyalgan 20 mg 2020-06 2 00:00: 00 No 20mg [facility] Kenalog (Triamcinol one) Kenalog (Triamcinol one) 2020-06 2 00:00: 00 No 40mg [facility] Bupivicaine [place] Bupivicaine [place] 2020-06 00:00: 00 No 2.5mg [facility] Kenalog (Triamcinol one) Kenalog (Triamcinol one) 2020-06 2 00:00: 00 No 40mg [facility] Bupivicaine [place] Bupivicaine [place] 2020-06 00:00: 00 No 2.5mg [facility] Hyalgan 20 mg Hyalgan 20 mg 2020-06 2 00:00: 00 No 20mg [facility] Hyalgan 20 mg Hyalgan 20 mg 2020-06 00:00: 00 No 20mg [facility] Kenalog (Triamcinol one) Kenalog (Triamcinol one) 2020-06 2 00:00: 00 No 40mg [facility] Bupivicaine [place] Bupivicaine [place] 2020-06 2 00:00: 00 No 2.5mg [facility] Kenalog (Triamcinol one) Kenalog (Triamcinol one) 2020-06 2 00:00: 00 No 40mg [facility] Bupivicaine [place] Bupivicaine [place] 2020-06 2 00:00: 00 No 2.5mg [facility] Hyalgan 20 mg Hyalgan 20 mg 2020-06 2- 00:00: 00 No 20mg [facility] Kenalog (Triamcinol one) Kenalog (Triamcinol one) 2020-06 2 00:00: 00 No 40mg [facility] Bupivicaine [place] Bupivicaine [place] 2020-06 00:00: 00 No 2.5mg [facility] Kenalog (Triamcinol one) Kenalog (Triamcinol one) 2020-06 2 00:00: 00 No 40mg [facility] Hyalgan 20 mg Hyalgan 20 mg 2020-06 00:00: 00 No 20mg [facility] Bupivicaine [place] Bupivicaine [place] 2020-06 00:00: 00 No 2.5mg [facility] Hyalgan 20 mg Hyalgan 20 mg 2020-06 00:00: 00 No 20mg [facility] Kenalog (Triamcinol one) Kenalog (Triamcinol one) 2020-06 2 00:00: 00 No 40mg [facility] Bupivicaine [place] Bupivicaine [place] 2020-06 00:00: 00 No 2.5mg [facility] Kenalog (Triamcinol one) Kenalog (Triamcinol one) 2020-06 00:00: 00 No 40mg [facility] Hyalgan 20 mg Hyalgan 20 mg 2020-06 2 00:00: 00 No 20mg [facility] Bupivicaine [place] Bupivicaine [place] 2020-06 00:00: 00 No 2.5mg [facility] Hyalgan 20 mg Hyalgan 20 mg 2020-06 2 00:00: 00 No 20mg [facility] Kenalog (Triamcinol one) Kenalog (Triamcinol one) 2020-06 2- 00:00: 00 No 40mg [facility] Bupivicaine [place] Bupivicaine [place] 2020-06 2 00:00: 00 No 2.5mg [facility] Kenalog (Triamcinol one) Kenalog (Triamcinol one) 2020-06 2 00:00: 00 No 40mg [facility] Hyalgan 20 mg Hyalgan 20 mg 2020-06 2 00:00: 00 No 20mg [facility] Hyalgan 20 mg Hyalgan 20 mg 2020-06 2 00:00: 00 No 20mg [facility] Kenalog (Triamcinol one) Kenalog (Triamcinol one) 2020-06 00:00: 00 No 40mg [facility] Bupivicaine [place] Bupivicaine [place] 2020-06 00:00: 00 No 2.5mg [facility] Bupivicaine [place] Bupivicaine [place] 2020-06 00:00: 00 No 2.5mg [facility] Kenalog (Triamcinol one) Kenalog (Triamcinol one) 2020-06 2 00:00: 00 No 40mg [facility] Hyalgan 20 mg Hyalgan 20 mg 2020-06 00:00: 00 No 20mg [facility] Hyalgan 20 mg Hyalgan 20 mg 2020-06 00:00: 00 No 20mg [facility] Kenalog (Triamcinol one) Kenalog (Triamcinol one) 2020-06 2 00:00: 00 No 40mg [facility] Bupivicaine [place] Bupivicaine [place] 2020-06 2 00:00: 00 No 2.5mg [facility] Bupivicaine [place] Bupivicaine [place] 2020-06 2 00:00: 00 No 2.5mg [facility] Kenalog (Triamcinol one) Kenalog (Triamcinol one) 2020-06 2- 00:00: 00 No 40mg [facility] Hyalgan 20 mg Hyalgan 20 mg 2020-06 2 00:00: 00 No 20mg [facility] Hyalgan 20 mg Hyalgan 20 mg 2020-06 2 00:00: 00 No 20mg [facility] Kenalog (Triamcinol one) Kenalog (Triamcinol one) 2020-06 2 00:00: 00 No 40mg [facility] Bupivicaine [place] Bupivicaine [place] 2020-06 00:00: 00 No 2.5mg [facility] Hyalgan 20 mg Hyalgan 20 mg 2020-06 00:00: 00 No 20mg [facility] Kenalog (Triamcinol one) Kenalog (Triamcinol one) 2020-06 00:00: 00 No 40mg [facility] Bupivicaine [place] Bupivicaine [place] 2020-06 00:00: 00 No 2.5mg [facility] Hyalgan 20 mg Hyalgan 20 mg 2020-06 00:00: 00 No 20mg [facility] Kenalog (Triamcinol one) Kenalog (Triamcinol one) 2020-06 00:00: 00 No 40mg [facility] Bupivicaine [place] Bupivicaine [place] 2020-06 00:00: 00 No 2.5mg [facility] Hyalgan 20 mg Hyalgan 20 mg 2020-06 2 00:00: 00 No 20mg [facility] Kenalog (Triamcinol one) Kenalog (Triamcinol one) 2020-06 2 00:00: 00 No 40mg [facility] Bupivicaine [place] Bupivicaine [place] 2020-06 00:00: 00 No 2.5mg [facility] Hyalgan 20 mg Hyalgan 20 mg 2020-06 2- 00:00: 00 No 20mg [facility] Kenalog (Triamcinol one) Kenalog (Triamcinol one) 2020-06 00:00: 00 No 40mg [facility] Bupivicaine [place] Bupivicaine [place] 2020-06 00:00: 00 No 2.5mg [facility] Hyalgan 20 mg Hyalgan 20 mg 2020-06 00:00: 00 No 20mg [facility] Kenalog (Triamcinol one) Kenalog (Triamcinol one) 2020-06 00:00: 00 No 40mg [facility] Bupivicaine [place] Bupivicaine [place] 2020-06 00:00: 00 No 2.5mg [facility] atorvastati n (LIPITOR) 40 mg tablet 07-19 14:57: 34 Yes 40mg Take 40 mg by mouth at bedtime. [facility] LEVOTHYROXI NE SODIUM (LEVOTHYROX INE ORAL) 07-19 14:57: 34 Yes Take by mouth. [facility] FEXOFENADIN E HCL (FAVIOLA ORAL) 07-19 14:57: 34 Yes Take by mouth. [facility] pumpkin seed extract/soy germ (AZO BLADDER CONTROL ORAL) 07-19 14:57: 34 Yes Take by mouth. [facility] atorvastati n (LIPITOR) 40 mg tablet 07-19 14:57: 34 Yes 40mg Take 40 mg by mouth at bedtime. [facility] LEVOTHYROXI NE SODIUM (LEVOTHYROX INE ORAL) 07-19 14:57: 34 Yes Take by mouth. [facility] FEXOFENADIN E HCL (FAVIOLA ORAL) 07-19 14:57: 34 Yes Take by mouth. [facility] pumpkin seed extract/soy germ (AZO BLADDER CONTROL ORAL) 07-19 14:57: 34 Yes Take by mouth. [facility] atorvastati n (LIPITOR) 40 mg tablet 07-19 14:57: 34 Yes 40mg Take 40 mg by mouth at bedtime. [facility] LEVOTHYROXI NE SODIUM (LEVOTHYROX INE ORAL) 07-19 14:57: 34 Yes Take by mouth. [facility] FEXOFENADIN E HCL (FAVIOLA ORAL) 07-19 14:57: 34 Yes Take by mouth. [facility] pumpkin seed extract/soy germ (AZO BLADDER CONTROL ORAL) 07-19 14:57: 34 Yes Take by mouth. [facility] atorvastati n (LIPITOR) 40 mg tablet 07-19 14:57: 34 Yes 40mg Take 40 mg by mouth at bedtime. [facility] LEVOTHYROXI NE SODIUM (LEVOTHYROX INE ORAL) 07-19 14:57: 34 Yes Take by mouth. [facility] FEXOFENADIN E HCL (FAVIOLA ORAL) 07-19 14:57: 34 Yes Take by mouth. [facility] pumpkin seed extract/soy germ (AZO BLADDER CONTROL ORAL) 07-19 14:57: 34 Yes Take by mouth. [facility] atorvastati n (LIPITOR) 40 mg tablet 07-19 14:57: 34 Yes 40mg Take 40 mg by mouth at bedtime. [facility] LEVOTHYROXI NE SODIUM (LEVOTHYROX INE ORAL) 07-19 14:57: 34 Yes Take by mouth. [facility] FEXOFENADIN E HCL (FAVIOLA ORAL) 07-19 14:57: 34 Yes Take by mouth. [facility] pumpkin seed extract/soy germ (AZO BLADDER CONTROL ORAL) 07-19 14:57: 34 Yes Take by mouth. [facility] atorvastati n (LIPITOR) 40 mg tablet 07-19 14:57: 34 Yes 40mg Take 40 mg by mouth at bedtime. [facility] LEVOTHYROXI NE SODIUM (LEVOTHYROX INE ORAL) 07-19 14:57: 34 Yes Take by mouth. [facility] FEXOFENADIN E HCL (FAVIOLA ORAL) 07-19 14:57: 34 Yes Take by mouth. [facility] pumpkin seed extract/soy germ (AZO BLADDER CONTROL ORAL) 07-19 14:57: 34 Yes Take by mouth. [facility] atorvastati n (LIPITOR) 40 mg tablet 07-19 14:57: 34 Yes 40mg Take 40 mg by mouth at bedtime. [facility] LEVOTHYROXI NE SODIUM (LEVOTHYROX INE ORAL) 07-19 14:57: 34 Yes Take by mouth. [facility] FEXOFENADIN E HCL (FAVIOLA ORAL) 07-19 14:57: 34 Yes Take by mouth. [facility] pumpkin seed extract/soy germ (AZO BLADDER CONTROL ORAL) 07-19 14:57: 34 Yes Take by mouth. [facility] FLUoxetine 40 mg capsule 07-19 00:00: 00 Yes [id number] 40mg Take 1 capsule by mouth daily. [facility] oxybutynin XL 5 mg 24 hr tablet 07-19 00:00: 00 Yes [id number] 5mg Take 1 tablet by mouth daily. [facility] FLUoxetine 40 mg capsule 07-19 00:00: 00 Yes [id number] 40mg Take 1 capsule by mouth daily. [facility] FLUoxetine 40 mg capsule 07-19 00:00: 00 08-15 00:00 :00 No [id number] 40mg Take 1 capsule by mouth daily. [facility] oxybutynin XL 5 mg 24 hr tablet 07-19 00:00: 00 07-27 00:00 :00 No [id number] 5mg Take 1 tablet by mouth daily. [facility] rosuvastati n 40 mg tablet 07-15 00:00: 00 Yes [facility] rosuvastati n 40 mg tablet 07-15 00:00: 00 Yes [facility] rosuvastati n 40 mg tablet 07-15 00:00: 00 Yes [facility] rosuvastati n 40 mg tablet 07-15 00:00: 00 Yes [facility] rosuvastati n 40 mg tablet 07-15 00:00: 00 Yes [facility] rosuvastati n 40 mg tablet 07-15 00:00: 00 Yes [facility] rosuvastati n 40 mg tablet 07-15 00:00: 00 Yes [facility] levothyroxi ne 50 mcg tablet 2019-06 00:00: 00 Yes 50ug Take 50 mcg by mouth every morning. [facility] levothyroxi ne 50 mcg tablet 2019-06 00:00: 00 Yes 50ug Take 50 mcg by mouth every morning. [facility] levothy[facility]xi ne [facility] mcg tablet 2019-06 00:00: 00 Yes 50ug Take 50 mcg by mouth every morning. [facility] levothyroxi ne 50 mcg tablet 2019-06 00:00: 00 Yes 50ug Take 50 mcg by mouth every morning. [facility] levothyroxi ne 50 mcg tablet 2019-06 00:00: 00 Yes 50ug Take 50 mcg by mouth every morning. [facility] levothyroxi ne 50 mcg tablet 2019-06 00:00: 00 Yes 50ug Take 50 mcg by mouth every morning. [facility] levothyroxi ne 50 mcg tablet 2019-06 00:00: 00 Yes 50ug Take 50 mcg by mouth every morning. [facility] montelukast 10 mg tablet 2019-06 00:00: 00 Yes TK 1 T PO QAM [facility] montelukast 10 mg tablet 2019-06 00:00: 00 Yes TK 1 T PO QAM [facility] montelukast 10 mg tablet 2019-06 00:00: 00 Yes TK 1 T PO QAM [facility] montelukast 10 mg tablet 2019-06 00:00: 00 Yes TK 1 T PO QAM [facility] montelukast 10 mg tablet 2019-06 00:00: 00 Yes TK 1 T PO QAM [facility] montelukast 10 mg tablet 2019-06 00:00: 00 Yes TK 1 T PO QAM [facility] montelukast 10 mg tablet 2019-06 00:00: 00 Yes TK 1 T PO QAM [facility] Visco-3 Visco-3 2019-0 01-16 00:00: 00 No [facility] Visco-3 Visco-3 2020-0 01-16 00:00: 00 No 2.5mL [facility] Visco-3 Visco-3 2020-0 01-16 00:00: 00 No 2.5mL [facility] Visco-3 Visco-3 2019-0 01-16 00:00: 00 No 2.5mL [facility] Visco-3 Visco-3 2020-0 01-16 00:00: 00 No 2.5mL [facility] Visco-3 Visco-3 2020-0 01-16 00:00: 00 No 2.5mL [facility] Visco-3 Visco-3 2020-0 01-16 00:00: 00 No 2.5mL [facility] Visco-3 Visco-3 2020-0 01-16 00:00: 00 No 2.5mL [facility] Visco-3 Visco-3 2020-0 01-16 00:00: 00 No 2.5mL [facility] Visco-3 Visco-3 2020-0 01-16 00:00: 00 No 2.5mL [facility] Visco-3 Visco-3 2020-0 01-16 00:00: 00 No 2.[facility]mL [facility] Visco-3 Visco-3 2019-0 01-16 00:00: 00 No 2.5mL [facility] Visco-3 Visco-3 2019-0 01-16 00:00: 00 No 2.5mL [facility] Visco-3 Visco-3 2019-0 01-16 00:00: 00 No 2.5mL [facility] Visco-3 Visco-3 2019-0 01-16 00:00: 00 No 2.5mL [facility] Visco-3 Visco-3 2019-0 01-16 00:00: 00 No 2.5mL [facility] Visco-3 Visco-3 2019-0 01-16 00:00: 00 No 2.5mL [facility] Visco-3 Visco-3 2019-0 01-16 00:00: 00 No 2.5mL [facility] Visco-3 Visco-3 2019-0 01-16 00:00: 00 No 2.5mL [facility] Visco-3 Visco-3 2019-0 01-16 00:00: 00 No 2.5mL [facility] Visco-3 Visco-3 2019-0 01-16 00:00: 00 No 2.5mL [facility] Visco-3 Visco-3 2019-0 01-16 00:00: 00 No 2.5mL [facility] Visco-3 Visco-3 2019-0 12-29 00:00: 00 No 2.5mL [facility] Visco-3 Visco-3 2019-0 12-29 00:00: 00 No 2.5mL [facility] Visco-3 Visco-3 2019-0 12-29 00:00: 00 No 2.5mL [facility] Visco-3 Visco-3 2019-0 12-29 00:00: 00 No 2.5mL [facility] Visco-3 Visco-3 2019-0 12-29 00:00: 00 No 2.5mL [facility] Visco-3 Visco-3 2019-0 12-29 00:00: 00 No [facility]mL [facility] Visco-3 Visco-3 2019-0 12-29 00:00: 00 No 2.5mL [facility] Visco-3 Visco-3 2019-0 12-29 00:00: 00 No 2.5mL [facility] Visco-3 Visco-3 2019-0 12-29 00:00: 00 No 2.5mL [facility] Visco-3 Visco-3 2019-0 12-29 00:00: 00 No 2.5mL [facility] Visco-3 Visco-3 2019-0 12-29 00:00: 00 No 2.5mL [facility] Visco-3 Visco-3 2019-0 12-29 00:00: 00 No 2.5mL [facility] Visco-3 Visco-3 2019-0 12-29 00:00: 00 No 2.5mL [facility] Visco-3 Visco-3 2019-0 12-29 00:00: 00 No 2.5mL [facility] Visco-3 Visco-3 2019-0 12-29 00:00: 00 No 2.5mL [facility] Visco-3 Visco-3 2019-0 12-29 00:00: 00 No 2.5mL [facility] Visco-3 Visco-3 2019-0 12-29 00:00: 00 No 2.5mL [facility] Visco-3 Visco-3 2019-0 12-29 00:00: 00 No 2.5mL [facility] Visco-3 Visco-3 2019-0 12-29 00:00: 00 No 2.5mL [facility] Visco-3 Visco-3 2019-0 12-29 00:00: 00 No 2.5mL [facility] Visco-3 Visco-3 2019-0 12-29 00:00: 00 No 2.5mL [facility] Visco-3 Visco-3 12-29 00:00: 00 No 2.5mL [facility] Kenalog (Triamcinol one) Kenalog (Triamcinol one) 12-21 00:00: 00 No 40mg [facility] Visco-3 Visco-3 12-21 00:00: 00 No 2.5mL [facility] LIDOCAINE HCL 10MG/ML LIDOCAINE HCL 10MG/ML 12-21 00:00: 00 No 4mL [facility] Visco-3 Visco-3 12-21 00:00: 00 No 2.5mL [facility] Kenalog (Triamcinol one) Kenalog (Triamcinol one) 12-21 00:00: 00 No 40mg [facility] LIDOCAINE HCL 10MG/ML LIDOCAINE HCL 10MG/ML 12-21 00:00: 00 No 4mL [facility] Kenalog (Triamcinol one) Kenalog (Triamcinol one) 12-21 00:00: 00 No 40mg [facility] Visco-3 Visco-3 12-21 00:00: 00 No 2.5mL [facility] LIDOCAINE HCL 10MG/ML LIDOCAINE HCL 10MG/ML 12-21 00:00: 00 No 4mL [facility] Visco-3 Visco-3 12-21 00:00: 00 No 2.5mL [facility] Kenalog (Triamcinol one) Kenalog (Triamcinol one) 12-21 00:00: 00 No 40mg [facility] LIDOCAINE HCL 10MG/ML LIDOCAINE HCL 10MG/ML 12-21 00:00: 00 No 4mL [facility] Kenalog (Triamcinol one) Kenalog (Triamcinol one) 12-21 00:00: 00 No 40mg [facility] Visco-3 Visco-3 12-21 00:00: 00 No 2.5mL [facility] LIDOCAINE HCL 10MG/ML LIDOCAINE HCL 10MG/ML 12-21 00:00: 00 No 4mL [facility] Visco-3 Visco-3 12-21 00:00: 00 No 2.5mL [facility] Kenalog (Triamcinol one) Kenalog (Triamcinol one) 12-21 00:00: 00 No 40mg [facility] LIDOCAINE HCL 10MG/ML LIDOCAINE HCL 10MG/ML 12-21 00:00: 00 No 4mL [facility] Kenalog (Triamcinol one) Kenalog (Triamcinol one) 12-21 00:00: 00 No 40mg [facility] Visco-3 Visco-3 12-21 00:00: 00 No 2.5mL [facility] LIDOCAINE HCL 10MG/ML LIDOCAINE HCL 10MG/ML 12-21 00:00: 00 No 4mL [facility] Visco-3 Visco-3 12-21 00:00: 00 No 2.5mL [facility] LIDOCAINE HCL 10MG/ML LIDOCAINE HCL 10MG/ML 12-21 00:00: 00 No 4mL [facility] Kenalog (Triamcinol one) Kenalog (Triamcinol one) 12-21 00:00: 00 No 40mg [facility] Kenalog (Triamcinol one) Kenalog (Triamcinol one) 12-21 00:00: 00 No 40mg [facility] Visco-3 Visco-3 12-21 00:00: 00 No 2.5mL [facility] LIDOCAINE HCL 10MG/ML LIDOCAINE HCL 10MG/ML 12-21 00:00: 00 No 4mL [facility] Visco-3 Visco-3 12-21 00:00: 00 No 2.5mL [facility] LIDOCAINE HCL 10MG/ML LIDOCAINE HCL 10MG/ML 12-21 00:00: 00 No 4mL [facility] Kenalog (Triamcinol one) Kenalog (Triamcinol one) 12-21 00:00: 00 No 40mg [facility] Kenalog (Triamcinol one) Kenalog (Triamcinol one) 12-21 00:00: 00 No 40mg [facility] Visco-3 Visco-3 12-21 00:00: 00 No 2.5mL [facility] LIDOCAINE HCL 10MG/ML LIDOCAINE HCL 10MG/ML 12-21 00:00: 00 No 4mL [facility] Visco-3 Visco-3 12-21 00:00: 00 No 2.5mL [facility] LIDOCAINE HCL 10MG/ML LIDOCAINE HCL 10MG/ML 12-21 00:00: 00 No 4mL [facility] Kenalog (Triamcinol one) Kenalog (Triamcinol one) 12-21 00:00: 00 No 40mg [facility] Kenalog (Triamcinol one) Kenalog (Triamcinol one) 12-21 00:00: 00 No 40mg [facility] LIDOCAINE HCL 10MG/ML LIDOCAINE HCL 10MG/ML 12-21 00:00: 00 No 4mL [facility] Visco-3 Visco-3 12-21 00:00: 00 No 2.5mL [facility] LIDOCAINE HCL 10MG/ML LIDOCAINE HCL 10MG/ML 12-21 00:00: 00 No 4mL [facility] Visco-3 Visco-3 12-21 00:00: 00 No 2.5mL [facility] Kenalog (Triamcinol one) Kenalog (Triamcinol one) 12-21 00:00: 00 No 40mg [facility] Kenalog (Triamcinol one) Kenalog (Triamcinol one) 12-21 00:00: 00 No 40mg [facility] LIDOCAINE HCL 10MG/ML LIDOCAINE HCL 10MG/ML 12-21 00:00: 00 No 4mL [facility] Visco-3 Visco-3 12-21 00:00: 00 No 2.5mL [facility] LIDOCAINE HCL 10MG/ML LIDOCAINE HCL 10MG/ML 12-21 00:00: 00 No 4mL [facility] Visco-3 Visco-3 12-21 00:00: 00 No 2.5mL [facility] Kenalog (Triamcinol one) Kenalog (Triamcinol one) 12-21 00:00: 00 No 40mg [facility] Visco-3 Visco-3 12-21 00:00: 00 No 2.5mL [facility] Kenalog (Triamcinol one) Kenalog (Triamcinol one) 12-21 00:00: 00 No 40mg [facility] LIDOCAINE HCL 10MG/ML LIDOCAINE HCL 10MG/ML 12-21 00:00: 00 No 4mL [facility] Visco-3 Visco-3 12-21 00:00: 00 No 2.5mL [facility] LIDOCAINE HCL 10MG/ML LIDOCAINE HCL 10MG/ML 12-21 00:00: 00 No 4mL [facility] Kenalog (Triamcinol one) Kenalog (Triamcinol one) 12-21 00:00: 00 No 40mg [facility] Visco-3 Visco-3 12-21 00:00: 00 No 2.5mL [facility] Kenalog (Triamcinol one) Kenalog (Triamcinol one) 12-21 00:00: 00 No 40mg [facility] LIDOCAINE HCL 10MG/ML LIDOCAINE HCL 10MG/ML 12-21 00:00: 00 No 4mL [facility] Visco-3 Visco-3 12-21 00:00: 00 No 2.5mL [facility] LIDOCAINE HCL 10MG/ML LIDOCAINE HCL 10MG/ML 12-21 00:00: 00 No 4mL [facility] Kenalog (Triamcinol one) Kenalog (Triamcinol one) 12-21 00:00: 00 No 40mg [facility] Visco-3 Visco-3 12-21 00:00: 00 No 2.5mL [facility] Kenalog (Triamcinol one) Kenalog (Triamcinol one) 12-21 00:00: 00 No 40mg [facility] LIDOCAINE HCL 10MG/ML LIDOCAINE HCL 10MG/ML 12-21 00:00: 00 No 4mL [facility] Visco-3 Visco-3 12-21 00:00: 00 No 2.5mL [facility] LIDOCAINE HCL 10MG/ML LIDOCAINE HCL 10MG/ML 12-21 00:00: 00 No 4mL [facility] Kenalog (Triamcinol one) Kenalog (Triamcinol one) 12-21 00:00: 00 No 40mg [facility] Bupivicaine [place] Bupivicaine [place] 3-16 00:00: 00 No 4mL [facility] Kenalog (Triamcinol one) Kenalog (Triamcinol one) 3-16 00:00: 00 No 40mg [facility] Kenalog (Triamcinol one) Kenalog (Triamcinol one) 3-16 00:00: 00 No 40mg [facility] Bupivicaine [place] Bupivicaine [place] 2020-0 3-16 00:00: 00 No 4mL [facility] Bupivicaine [place] Bupivicaine [place] 2020-0 3-16 00:00: 00 No 4mL [facility] Kenalog (Triamcinol one) Kenalog (Triamcinol one) 2019-0 3-16 00:00: 00 No 40mg [facility] Kenalog (Triamcinol one) Kenalog (Triamcinol one) 2019-0 3-16 00:00: 00 No 40mg [facility] Bupivicaine [place] Bupivicaine [place] 2019-0 3-16 00:00: 00 No 4mL [facility] Bupivicaine [place] Bupivicaine [place] 2019-0 3-16 00:00: 00 No 4mL [facility] Kenalog (Triamcinol one) Kenalog (Triamcinol one) 2019-0 3-16 00:00: 00 No 40mg [facility] Kenalog (Triamcinol one) Kenalog (Triamcinol one) 2019-0 3-16 00:00: 00 No 40mg [facility] Bupivicaine [place] Bupivicaine [place] 2019-0 3-16 00:00: 00 No 4mL [facility] Bupivicaine [place] Bupivicaine [place] 2019-0 3-16 00:00: 00 No 4mL [facility] Kenalog (Triamcinol one) Kenalog (Triamcinol one) 2019-0 3-16 00:00: 00 No 40mg [facility] Kenalog (Triamcinol one) Kenalog (Triamcinol one) 2019-0 3-16 00:00: 00 No 40mg [facility] Bupivicaine [place] Bupivicaine [place] 2020-0 3-16 00:00: 00 No 4mL [facility] Bupivicaine [place] Bupivicaine [place] 2020-0 3-16 00:00: 00 No 4mL [facility] Kenalog (Triamcinol one) Kenalog (Triamcinol one) 2020-0 3-16 00:00: 00 No 40mg [facility] Kenalog (Triamcinol one) Kenalog (Triamcinol one) 2020-0 3-16 00:00: 00 No 40mg [facility] Bupivicaine [place] Bupivicaine [place] 2020-0 3-16 00:00: 00 No 4mL [facility] Bupivicaine [place] Bupivicaine [place] 2020-0 3-16 00:00: 00 No 4mL [facility] Kenalog (Triamcinol one) Kenalog (Triamcinol one) 2019-0 3-16 00:00: 00 No 40mg [facility] Kenalog (Triamcinol one) Kenalog (Triamcinol one) 2019-0 3-16 00:00: 00 No 40mg [facility] Bupivicaine [place] Bupivicaine [place] 2020-0 3-16 00:00: 00 No 4mL [facility] Bupivicaine [place] Bupivicaine [place] 2020-0 3-16 00:00: 00 No 4mL [facility] Kenalog (Triamcinol one) Kenalog (Triamcinol one) 2020-0 3-16 00:00: 00 No 40mg [facility] Kenalog (Triamcinol one) Kenalog (Triamcinol one) 2019-0 3-16 00:00: 00 No 40mg [facility] Bupivicaine [place] Bupivicaine [place] 2020-0 3-16 00:00: 00 No 4mL [facility] Bupivicaine [place] Bupivicaine [place] 2020-0 3-16 00:00: 00 No 4mL [facility] Kenalog (Triamcinol one) Kenalog (Triamcinol one) 2020-0 3-16 00:00: 00 No 40mg [facility] Kenalog (Triamcinol one) Kenalog (Triamcinol one) 2020-0 3-16 00:00: 00 No 40mg [facility] Bupivicaine [place] Bupivicaine [place] 2020-0 3-16 00:00: 00 No 4mL [facility] Kenalog (Triamcinol one) Kenalog (Triamcinol one) 2019-0 3-16 00:00: 00 No 40mg [facility] Bupivicaine [place] Bupivicaine [place] 2020-0 3-16 00:00: 00 No 4mL [facility] Kenalog (Triamcinol one) Kenalog (Triamcinol one) 2019-0 3-16 00:00: 00 No 40mg [facility] Bupivicaine [place] Bupivicaine [place] 2020-0 3-16 00:00: 00 No 4mL [facility] Kenalog (Triamcinol one) Kenalog (Triamcinol one) 2019-0 3-16 00:00: 00 No 40mg [facility] Bupivicaine [place] Bupivicaine [place] 2020-0 3-16 00:00: 00 No 4mL [facility] Kenalog (Triamcinol one) Kenalog (Triamcinol one) 2019-0 3-16 00:00: 00 No 40mg [facility] Bupivicaine [place] Bupivicaine [place] 2020-0 3-16 00:00: 00 No 4mL [facility] Kenalog (Triamcinol one) Kenalog (Triamcinol one) 2019-0 3-16 00:00: 00 No 40mg [facility] Bupivicaine [place] Bupivicaine [place] 2020-0 3-16 00:00: 00 No 4mL [facility] Kenalog (Triamcinol one) Kenalog (Triamcinol one) 2019-0 3-16 00:00: 00 No 40mg [facility] Bupivicaine [place] Bupivicaine [place] 2020-0 3-16 00:00: 00 No 4mL [facility] Durolane Durolane 2018-06 024 00:00: 00 Yes Samm Corrales as directed [facility] Durolane 60 MG/3ML Durolane 60 MG/3ML 2018-06 024 00:00: 00 No Durolane 60 MG/3ML Durolane 60 MG/3ML Durolane 60 MG/3ML 2018-06 0 00:00: 00 No Durolane 60 MG/3ML Durolane 60 MG/3ML Durolane 60 MG/3ML 2018-06 0 00:00: 00 No Durolane 60 MG/3ML Durolane 60 MG/3ML Durolane 60 MG/3ML 2018-06 00:00: 00 No Durolane 60 MG/3ML Durolane 60 MG/3ML Durolane 60 MG/3ML 2018-06 0 00:00: 00 No Durolane 60 MG/3ML Durolane 60 MG/3ML Durolane 60 MG/3ML 2018-06 0 00:00: 00 No Durolane 60 MG/3ML Durolane 60 MG/3ML Durolane 60 MG/3ML 2018-06 024 00:00: 00 No Durolane 60 MG/3ML Durolane 60 MG/3ML Durolane 60 MG/3ML 2018-06 00:00: 00 No Durolane 60 MG/3ML Durolane 60 MG/3ML Durolane 60 MG/3ML 2018-06 024 00:00: 00 No Durolane 60 MG/3ML Durolane 60 MG/3ML Durolane 60 MG/3ML 2018-06 024 00:00: 00 No Durolane 60 MG/3ML Durolane 60 MG/3ML Durolane 60 MG/3ML 2018-06 024 00:00: 00 No Durolane 60 MG/3ML Durolane 60 MG/3ML Durolane 60 MG/3ML 2018-06 024 00:00: 00 No Durolane 60 MG/3ML Durolane 60 MG/3ML Durolane 60 MG/3ML 2018-06 024 00:00: 00 No Durolane 60 MG/3ML Durolane 60 MG/3ML Durolane 60 MG/3ML 2018-06 024 00:00: 00 No Durolane 60 MG/3ML Durolane 60 MG/3ML Durolane 60 MG/3ML 2018-06 024 00:00: 00 No Durolane 60 MG/3ML Durolane 60 MG/3ML Durolane 60 MG/3ML 2018-06 024 00:00: 00 No Durolane 60 MG/3ML Supartz Supartz 2017-06 0 00:00: 00 No 2.5mL [facility] Supartz Supartz 2017-06 0 00:00: 00 No 2.5mL [facility] Supartz Supartz 2017-06 00:00: 00 No 2.5mL [facility] Supartz Supartz 2017-06 00:00: 00 No 2.5mL [facility] Supartz Supartz 2017-06 00:00: 00 No 2.5mL [facility] Supartz Supartz 2017-06 00:00: 00 No 2.5mL [facility] Supartz Supartz 2017-06 00:00: 00 No 2.5mL [facility] Supartz Supartz 2017-06 00:00: 00 No 2.5mL [facility] Supartz Supartz 2017-06 0 00:00: 00 No 2.5mL [facility] Supartz Supartz 2017-06 00:00: 00 No 2.5mL [facility] Supartz Supartz 2017-06 0 00:00: 00 No 2.5mL [facility] Supartz Supartz 2017-06 0 00:00: 00 No 2.5mL [facility] Supartz Supartz 2017-06 0 00:00: 00 No 2.5mL [facility] Supartz Supartz 2017-06 0-30 00:00: 00 No 2.5mL [facility] Supartz Supartz 2017- 0 00:00: 00 No 2.5mL [facility] Supartz Supartz 2017- 0 00:00: 00 No 2.5mL [facility] Supartz Supartz 2017-06 0 00:00: 00 No 2.5mL [facility] Supartz Supartz 2017- 0 00:00: 00 No 2.5mL [facility] Supartz Supartz 2017-06 0 00:00: 00 No 2.5mL [facility] Supartz Supartz 2017-06 0 00:00: 00 No 2.5mL [facility] Supartz Supartz 2017-06 0 00:00: 00 No 2.5mL [facility] Supartz Supartz 2017-06 0 00:00: 00 No 2.5mL [facility] Supartz Supartz 2017-06 0 00:00: 00 No 2.5mL [facility] Supartz Supartz 2017- 0 00:00: 00 No 2.5mL [facility] [facility] Supartz Supartz 2017-06 0 00:00: 00 No 2.[facility]mL [facility] Supartz Supartz 2017- 0 00:00: 00 No 2.5mL [facility] Supartz Supartz 2017- 0 00:00: 00 No 2.5mL [facility] Supartz Supartz 2017- 0 00:00: 00 No 2.5mL [facility] Supartz Supartz 2017- 0 00:00: 00 No 2.5mL [facility] Supartz Supartz 2017- 0 00:00: 00 No 2.5mL [facility] Supartz Supartz 2017- 0 00:00: 00 No 2.5mL [facility] Supartz Supartz 2017-06 0 00:00: 00 No 2.5mL [facility] Supartz Supartz 2017-06 0 00:00: 00 No 2.5mL [facility] Supartz Supartz 2017-06 0 00:00: 00 No 2.5mL [facility] Supartz Supartz 2017-06 0 00:00: 00 No 2.5mL [facility] Supartz Supartz 2017-06 0 00:00: 00 No 2.5mL [facility] Supartz Supartz 2017-06 0 00:00: 00 No 2.5mL [facility] Supartz Supartz 2017-06 0 00:00: 00 No 2.5mL [facility] Supartz Supartz 2017-06 0 00:00: 00 No 2.5mL [facility] Supartz Supartz 2017-06 00:00: 00 No 2.5mL [facility] Supartz Supartz 2017-06 0 00:00: 00 No 2.5mL [facility] Supartz Supartz 2017-06 00:00: 00 No 2.5mL [facility] Supartz Supartz 2017-06 0 00:00: 00 No 2.5mL [facility] Supartz Supartz 2017-06 00:00: 00 No 2.5mL [facility] LIDOCAINE HCL 10MG/ML LIDOCAINE HCL 10MG/ML 2017-06 00:00: 00 No 10mg [facility] Betamethaso ne Sodium Phosphate Betamethaso ne Sodium Phosphate 2017-06 00:00: 00 No 1mL [facility] Supartz Supartz 2017-06 0 00:00: 00 No 2.5mL [facility] Supartz Supartz 2017-06 00:00: 00 No 2.5mL [facility] LIDOCAINE HCL 10MG/ML LIDOCAINE HCL 10MG/ML 2017-06 00:00: 00 No 10mg [facility] Betamethaso ne Sodium Phosphate Betamethaso ne Sodium Phosphate 2017-06 00:00: 00 No 1mL [facility] LIDOCAINE HCL 10MG/ML LIDOCAINE HCL 10MG/ML 2017-06 00:00: 00 No 10mg [facility] Betamethaso ne Sodium Phosphate Betamethaso ne Sodium Phosphate 2017-06 00:00: 00 No 1mL [facility] - [facility] Supartz Supartz 2017-06 00:00: 00 No 2.5mL [facility] - [facility] Supartz Supartz 2017-06 00:00: 00 No 2.5mL [facility] LIDOCAINE HCL 10MG/ML LIDOCAINE HCL 10MG/ML 2017-06 00:00: 00 No 10mg [facility] - [facility] Betamethaso ne Sodium Phosphate Betamethaso ne Sodium Phosphate 2017-06 00:00: 00 No 1mL [facility] LIDOCAINE HCL 10MG/ML LIDOCAINE HCL 10MG/ML 2017-06 00:00: 00 No 10mg [facility] Betamethaso ne Sodium Phosphate Betamethaso ne Sodium Phosphate 2017-06 00:00: 00 No 1mL [facility] Supartz Supartz 2017-06 00:00: 00 No 2.5mL [facility] Supartz Supartz 2017-06 0 00:00: 00 No 2.5mL [facility] LIDOCAINE HCL 10MG/ML LIDOCAINE HCL 10MG/ML 2017-06 00:00: 00 No 10mg [facility] - [facility] Betamethaso ne Sodium Phosphate Betamethaso ne Sodium Phosphate 2017-06 00:00: 00 No 1mL [facility] Betamethaso ne Sodium Phosphate Betamethaso ne Sodium Phosphate 2017-06 00:00: 00 No 1mL [facility] Supartz Supartz 2017-06 00:00: 00 No 2.5mL [facility] LIDOCAINE HCL 10MG/ML LIDOCAINE HCL 10MG/ML 2017-06 00:00: 00 No 10mg [facility] Betamethaso ne Sodium Phosphate Betamethaso ne Sodium Phosphate 2017-06 00:00: 00 No 1mL [facility] LIDOCAINE HCL 10MG/ML LIDOCAINE HCL 10MG/ML 2017-06 00:00: 00 No 10mg [facility] - [facility] Supartz Supartz 2017-06 00:00: 00 No 2.5mL [facility] Betamethaso ne Sodium Phosphate Betamethaso ne Sodium Phosphate 2017-06 00:00: 00 No 1mL [facility] Supartz Supartz 2017-06 00:00: 00 No 2.5mL [facility] LIDOCAINE HCL 10MG/ML LIDOCAINE HCL 10MG/ML 2017-06 00:00: 00 No 10mg [facility] Betamethaso ne Sodium Phosphate Betamethaso ne Sodium Phosphate 2017-06 00:00: 00 No 1mL [facility] LIDOCAINE HCL 10MG/ML LIDOCAINE HCL 10MG/ML 2017-06 00:00: 00 No 10mg [facility] Supartz Supartz 2017-06 00:00: 00 No 2.5mL [facility] Betamethaso ne Sodium Phosphate Betamethaso ne Sodium Phosphate 2017-06 00:00: 00 No 1mL [facility] Supartz Supartz 2017-06 00:00: 00 No 2.5mL [facility] - [facility] LIDOCAINE HCL 10MG/ML LIDOCAINE HCL 10MG/ML 2017-06 00:00: 00 No 10mg [facility] Betamethaso ne Sodium Phosphate Betamethaso ne Sodium Phosphate 2017-06 00:00: 00 No 1mL [facility] LIDOCAINE HCL 10MG/ML LIDOCAINE HCL 10MG/ML 2017-06 00:00: 00 No 10mg [facility] Supartz Supartz 2017-06 00:00: 00 No 2.5mL [facility] Betamethaso ne Sodium Phosphate Betamethaso ne Sodium Phosphate 2017-06 00:00: 00 No 1mL [facility] Betamethaso ne Sodium Phosphate Betamethaso ne Sodium Phosphate 2017-06 00:00: 00 No 1mL [facility] Supartz Supartz 2017-06 00:00: 00 No 2.5mL [facility] LIDOCAINE HCL 10MG/ML LIDOCAINE HCL 10MG/ML 2017-06 00:00: 00 No 10mg [facility] Supartz Supartz 2017-06 00:00: 00 No 2.5mL [facility] - [facility] LIDOCAINE HCL 10MG/ML LIDOCAINE HCL 10MG/ML 2017-06 00:00: 00 No 10mg [facility] Betamethaso ne Sodium Phosphate Betamethaso ne Sodium Phosphate 2017-06 00:00: 00 No 1mL [facility] Betamethaso ne Sodium Phosphate Betamethaso ne Sodium Phosphate 2017-06 00:00: 00 No 1mL [facility] Supartz Supartz 2017-06 00:00: 00 No 2.5mL [facility] LIDOCAINE HCL 10MG/ML LIDOCAINE HCL 10MG/ML 2017-06 00:00: 00 No 10mg [facility] Supartz Supartz 2017-06 00:00: 00 No 2.5mL [facility] - [facility] LIDOCAINE HCL 10MG/ML LIDOCAINE HCL 10MG/ML 2017-06 00:00: 00 No 10mg [facility] Betamethaso ne Sodium Phosphate Betamethaso ne Sodium Phosphate 2017-06 00:00: 00 No 1mL [facility] LIDOCAINE HCL 10MG/ML LIDOCAINE HCL 10MG/ML 2017-06 00:00: 00 No 10mg [facility] Supartz Supartz 2017-06 00:00: 00 No 2.5mL [facility] Betamethaso ne Sodium Phosphate Betamethaso ne Sodium Phosphate 2017-06 00:00: 00 No 1mL [facility] LIDOCAINE HCL 10MG/ML LIDOCAINE HCL 10MG/ML 2017-06 00:00: 00 No 10mg [facility] Supartz Supartz 2017-06 00:00: 00 No 2.5mL [facility] Betamethaso ne Sodium Phosphate Betamethaso ne Sodium Phosphate 2017-06 00:00: 00 No 1mL [facility] LIDOCAINE HCL 10MG/ML LIDOCAINE HCL 10MG/ML 2017-06 00:00: 00 No 10mg [facility] Supartz Supartz 2017-06 00:00: 00 No 2.5mL [facility] - [facility] Betamethaso ne Sodium Phosphate Betamethaso ne Sodium Phosphate 2017-06 00:00: 00 No 1mL [facility] LIDOCAINE HCL 10MG/ML LIDOCAINE HCL 10MG/ML 2017-06 00:00: 00 No 10mg [facility] Supartz Supartz 2017-06 00:00: 00 No 2.5mL [facility] Betamethaso ne Sodium Phosphate Betamethaso ne Sodium Phosphate 2017-06 00:00: 00 No 1mL [facility] LIDOCAINE HCL 10MG/ML LIDOCAINE HCL 10MG/ML 2017-06 00:00: 00 No 10mg [facility] Supartz Supartz 2017-06 00:00: 00 No 2.5mL [facility] Betamethaso ne Sodium Phosphate Betamethaso ne Sodium Phosphate 2017-06 00:00: 00 No 1mL [facility] LIDOCAINE HCL 10MG/ML LIDOCAINE HCL 10MG/ML 2017-06 00:00: 00 No 10mg [facility] Tato Zepedaartz 2017-06 00:00: 00 No 2.5mL [facility] atorvastati n (LIPITOR) 40 mg tablet 08-31 20:54: 40 Yes 40mg Take 40 mg by mouth at bedtime. [facility] LEVOTHYROXI NE SODIUM (LEVOTHYROX INE ORAL) 08-31 20:54: 40 Yes Take by mouth. [facility] FEXOFENADIN E HCL (FAVIOLA ORAL) 08-31 20:54: 40 Yes Take by mouth. [facility] FLUoxetine (PROZAC) 20 mg capsule 08-31 20:54: 40 Yes 20mg Take 20 mg by mouth at bedtime. [facility] Rosuvastati n Calcium Rosuvastati n Calcium Yes Samm Corrales not defined [facility] Levothyroxi ne Sodium Levothyroxi ne Sodium Yes Samm Corrales not defined [facility] Montelukast Sodium Montelukast Sodium Yes Samm Corrales not defined [facility] Fluoxetine HCl Fluoxetine HCl Yes Samm Corrales TAKE 1 CAPSULE BY MOUTH ONCE DAILY [facility] Levothyroxi ne Sodium 50 MCG Levothyroxi ne Sodium 50 MCG No Levothyrox ine Sodium 50 MCG Rosuvastati n Calcium 40 MG Rosuvastati n Calcium 40 MG No Rosuvastat in Calcium 40 MG FLUoxetine HCl 40 MG FLUoxetine HCl 40 MG No FLUoxetine HCl 40 MG Montelukast Sodium 10 MG Montelukast Sodium 10 MG No Montelukas t Sodium 10 MG Levothyroxi ne Sodium 50 MCG Levothyroxi ne Sodium 50 MCG No Levothyrox ine Sodium 50 MCG Rosuvastati n Calcium 40 MG Rosuvastati n Calcium 40 MG No Rosuvastat in Calcium 40 MG FLUoxetine HCl 40 MG FLUoxetine HCl 40 MG No FLUoxetine HCl 40 MG Montelukast Sodium 10 MG Montelukast Sodium 10 MG No Montelukas t Sodium 10 MG Levothyroxi ne Sodium 50 MCG Levothyroxi ne Sodium 50 MCG No Levothyrox ine Sodium 50 MCG Rosuvastati n Calcium 40 MG Rosuvastati n Calcium 40 MG No Rosuvastat in Calcium 40 MG FLUoxetine HCl 40 MG FLUoxetine HCl 40 MG No FLUoxetine HCl 40 MG Montelukast Sodium 10 MG Montelukast Sodium 10 MG No Montelukas t Sodium 10 MG Rosuvastati n Calcium 40 MG Rosuvastati n Calcium 40 MG No Rosuvastat in Calcium 40 MG Levothyroxi ne Sodium 50 MCG Levothyroxi ne Sodium 50 MCG No Levothyrox ine Sodium 50 MCG FLUoxetine HCl 40 MG FLUoxetine HCl 40 MG No FLUoxetine HCl 40 MG Montelukast Sodium 10 MG Montelukast Sodium 10 MG No Montelukas t Sodium 10 MG Rosuvastati n Calcium 40 MG Rosuvastati n Calcium 40 MG No Rosuvastat in Calcium 40 MG Levothyroxi ne Sodium 50 MCG Levothyroxi ne Sodium 50 MCG No Levothyrox ine Sodium 50 MCG Montelukast Sodium 10 MG Montelukast Sodium 10 MG No Montelukas t Sodium 10 MG FLUoxetine HCl 40 MG FLUoxetine HCl 40 MG No FLUoxetine HCl 40 MG Rosuvastati n Calcium 40 MG Rosuvastati n Calcium 40 MG No Rosuvastat in Calcium 40 MG Levothyroxi ne Sodium 50 MCG Levothyroxi ne Sodium 50 MCG No Levothyrox ine Sodium 50 MCG Montelukast Sodium 10 MG Montelukast Sodium 10 MG No Montelukas t Sodium 10 MG FLUoxetine HCl 40 MG FLUoxetine HCl 40 MG No FLUoxetine HCl 40 MG Rosuvastati n Calcium 40 MG Rosuvastati n Calcium 40 MG No Rosuvastat in Calcium 40 MG Montelukast Sodium 10 MG Montelukast Sodium 10 MG No Montelukas t Sodium 10 MG Levothyroxi ne Sodium 50 MCG Levothyroxi ne Sodium 50 MCG No Levothyrox ine Sodium 50 MCG FLUoxetine HCl 40 MG FLUoxetine HCl 40 MG No FLUoxetine HCl 40 MG Rosuvastati n Calcium 40 MG Rosuvastati n Calcium 40 MG No Rosuvastat in Calcium 40 MG Montelukast Sodium 10 MG Montelukast Sodium 10 MG No Montelukas t Sodium 10 MG Levothyroxi ne Sodium 50 MCG Levothyroxi ne Sodium 50 MCG No Levothyrox ine Sodium 50 MCG FLUoxetine HCl 40 MG FLUoxetine HCl 40 MG No FLUoxetine HCl 40 MG Levothyroxi ne Sodium 50 MCG Levothyroxi ne Sodium 50 MCG No Levothyrox ine Sodium 50 MCG Montelukast Sodium 10 MG Montelukast Sodium 10 MG No Montelukas t Sodium 10 MG Ozempic Ozempic No Ozempic Mobic Mobic No Mobic FLUoxetine HCl 40 MG FLUoxetine HCl 40 MG No FLUoxetine HCl 40 MG Rosuvastati n Calcium 40 MG Rosuvastati n Calcium 40 MG No Rosuvastat in Calcium 40 MG traMADol HCl 50 MG traMADol HCl 50 MG No 1{table t_as_ne eded} QD traMADol HCl 50 MG Montelukast Sodium 10 MG Montelukast Sodium 10 MG No Montelukas t Sodium 10 MG Levothyroxi ne Sodium 50 MCG Levothyroxi ne Sodium 50 MCG No Levothyrox ine Sodium 50 MCG FLUoxetine HCl 40 MG FLUoxetine HCl 40 MG No FLUoxetine HCl 40 MG Rosuvastati n Calcium 40 MG Rosuvastati n Calcium 40 MG No Rosuvastat in Calcium 40 MG Levothyroxi ne Sodium 50 MCG Levothyroxi ne Sodium 50 MCG No Levothyrox ine Sodium 50 MCG Montelukast Sodium 10 MG Montelukast Sodium 10 MG No Montelukas t Sodium 10 MG Ozempic Ozempic No Ozempic Mobic Mobic No Mobic FLUoxetine HCl 40 MG FLUoxetine HCl 40 MG No FLUoxetine HCl 40 MG Rosuvastati n Calcium 40 MG Rosuvastati n Calcium 40 MG No Rosuvastat in Calcium 40 MG traMADol HCl 50 MG traMADol HCl 50 MG No 1{table t_as_ne eded} QD traMADol HCl 50 MG Montelukast Sodium 10 MG Montelukast Sodium 10 MG No Montelukas t Sodium 10 MG Levothyroxi ne Sodium 50 MCG Levothyroxi ne Sodium 50 MCG No Levothyrox ine Sodium 50 MCG Levothyroxi ne Sodium 50 MCG Levothyroxi ne Sodium 50 MCG No Levothyrox ine Sodium 50 MCG Montelukast Sodium 10 MG Montelukast Sodium 10 MG No Montelukas t Sodium 10 MG Ozempic Ozempic No Ozempic Mobic Mobic No Mobic FLUoxetine HCl 40 MG FLUoxetine HCl 40 MG No FLUoxetine HCl 40 MG Rosuvastati n Calcium 40 MG Rosuvastati n Calcium 40 MG No Rosuvastat in Calcium 40 MG FLUoxetine HCl 40 MG FLUoxetine HCl 40 MG No FLUoxetine HCl 40 MG traMADol HCl 50 MG traMADol HCl 50 MG No 1{table t_as_ne eded} QD traMADol HCl 50 MG Rosuvastati n Calcium 40 MG Rosuvastati n Calcium 40 MG No Rosuvastat in Calcium 40 MG Rosuvastati n Calcium 40 MG Rosuvastati n Calcium 40 MG No Rosuvastat in Calcium 40 MG Montelukast Sodium 10 MG Montelukast Sodium 10 MG No Montelukas t Sodium 10 MG Levothyroxi ne Sodium 50 MCG Levothyroxi ne Sodium 50 MCG No Levothyrox ine Sodium 50 MCG FLUoxetine HCl 40 MG FLUoxetine HCl 40 MG No FLUoxetine HCl 40 MG Levothyroxi ne Sodium 50 MCG Levothyroxi ne Sodium 50 MCG No Levothyrox ine Sodium 50 MCG Rosuvastati n Calcium 40 MG Rosuvastati n Calcium 40 MG No Rosuvastat in Calcium 40 MG FLUoxetine HCl 40 MG FLUoxetine HCl 40 MG No FLUoxetine HCl 40 MG Montelukast Sodium 10 MG Montelukast Sodium 10 MG No Montelukas t Sodium 10 MG Levothyroxi ne Sodium 50 MCG Levothyroxi ne Sodium 50 MCG No Levothyrox ine Sodium 50 MCG Rosuvastati n Calcium 40 MG Rosuvastati n Calcium 40 MG No Rosuvastat in Calcium 40 MG FLUoxetine HCl 40 MG FLUoxetine HCl 40 MG No FLUoxetine HCl 40 MG Montelukast Sodium 10 MG Montelukast Sodium 10 MG No Montelukas t Sodium 10 MG Vital Signs Vital Name Observation Time Observation Value Comments S otisce height 2023-04-15 14:00:00 67 [in_i] Commo n [facility] weight 2023-04-15 14:00:00 304 [lb_av] Comm on [facility] temperature 2023-04-15 14:00:00 98.4 [degF] Com mon [facility] bmi 2023-04-15 14:00:00 47.61 kg/m2 Comm on [facility] blood pressure systolic 2023-04-15 14:00:00 112 mm[Hg] [facility] blood pressure diastolic 2023-04-15 14:00:00 70 mm[Hg] [facility] height 2023-01-14 15:30:00 67 [in_i] Commo n [facility] weight 2023-01-14 15:30:00 315 [lb_av] Comm on [facility] bmi 2023-01-14 15:30:00 49.33 kg/m2 Comm on [facility] blood pressure systolic 2023-01-14 15:30:00 136 mm[Hg] [facility] blood pressure diastolic 2023-01-14 15:30:00 86 mm[Hg] [facility] height 2022-10-08 14:30:00 67 [in_i] Commo n [facility] weight 2022-10-08 14:30:00 321 [lb_av] Comm on [facility] temperature 2022-10-08 14:30:00 96.7 [degF] Com mon [facility] bmi 2022-10-08 14:30:00 50.27 kg/m2 Comm [facility] blood pressure systolic 2022-10-08 14:30:00 144 mm[Hg] [facility] blood pressure diastolic 2022-10-08 14:30:00 88 mm[Hg] [facility] height 2022-02-05 14:00:00 67 [in_i] Commo n [facility] weight 2022-02-05 14:00:00 200 [lb_av] Comm on [facility] temperature 2022-02-05 14:00:00 97.2 [degF] Com mon [facility] bmi 2022-02-05 14:00:00 31.32 kg/m2 Comm [facility] blood pressure systolic 2022-02-05 14:00:00 136 mm[Hg] [facility] blood pressure diastolic 2022-02-05 14:00:00 84 mm[Hg] [facility] height 2022-01-14 14:00:00 67 [in_i] Commo n [facility] weight 2022-01-14 14:00:00 305 [lb_av] Comm on [facility] bmi 2022-01-14 14:00:00 47.76 kg/m2 Comm on [facility] blood pressure systolic 2022-01-14 14:00:00 136 mm[Hg] [facility] blood pressure diastolic 2022-01-14 14:00:00 84 mm[Hg] [facility] height 2021-11-08 08:30:00 67 [in_i] Commo n [facility] weight 2021-11-08 08:30:00 299 [lb_av] Comm on [facility] temperature 2021-11-08 08:30:00 96.2 [degF] Com mon [facility] bmi 2021-11-08 08:30:00 46.82 kg/m2 Comm on [facility] blood pressure systolic 2021-11-08 08:30:00 142 mm[Hg] [facility] blood pressure diastolic 2021-11-08 08:30:00 86 mm[Hg] [facility] blood pressure diastolic 2021-06-12 15:30:00 84 mm[Hg] [facility] height 2021-06-12 15:30:00 67 [in_i] Commo n [facility] weight 2021-06-12 15:30:00 307 [lb_av] Comm on [facility] temperature 2021-06-12 15:30:00 97.2 [degF] Com mon [facility] bmi 2021-06-12 15:30:00 48.08 kg/m2 Comm on [facility] blood pressure systolic 2021-06-12 15:30:00 136 mm[Hg] [facility] height 2021-06-05 15:30:00 67 [in_i] Commo n [facility] weight 2021-06-05 15:30:00 307 [lb_av] Comm on [facility] bmi 2021-06-05 15:30:00 48.08 kg/m2 Comm on [facility] blood pressure systolic 2021-06-05 15:30:00 131 mm[Hg] [facility] blood pressure diastolic 2021-06-05 15:30:00 79 mm[Hg] [facility] height 2021-05-28 15:30:00 67 [in_i] Commo n [facility] weight 2021-05-28 15:30:00 307 [lb_av] Comm on [facility] temperature 2021-05-28 15:30:00 98.1 [degF] Com [facility] bmi 2021-05-28 15:30:00 48.08 kg/m2 Comm on [facility] blood pressure systolic 2021-05-28 15:30:00 132 mm[Hg] [facility] blood pressure diastolic 2021-05-28 15:30:00 84 mm[Hg] [facility] height 2021-04-17 15:00:00 67 [in_i] Commo n [facility] weight 2021-04-17 15:00:00 307 [lb_av] Comm on [facility] temperature 2021-04-17 15:00:00 97.1 [degF] Com [facility] bmi 2021-04-17 15:00:00 48.08 kg/m2 Comm on [facility] blood pressure systolic 2021-04-17 15:00:00 124 mm[Hg] [facility] blood pressure diastolic 2021-04-17 15:00:00 84 mm[Hg] [facility] Procedures Procedure Date / Time Performed Performing Clinicia n Source EXTERNAL MAMMOGRAM 2022-02-19 13:00:00 Doctor Un assigned, [place] [facility] ASSIGNMENT OF BENEFITS 2020-07-19 20:33:23 Docto r Unassigned, [place] [facility] Encounters Start Date/Time End Date/Time Encounter Type Admission Type Attending [facility] Care Department Encounter ID Source 2023-07-15 11:59:00 Outpatient [facility] [id number] [facility] 2022-10-08 15:57:00 Outpatient [facility] [id number] [facility] 2022-10-07 12:45:01 Outpatient [facility] [id number] [facility] 2022-01-03 13:53:01 Outpatient [facility] [id number] [facility] 2021-10-26 08:48:01 Outpatient [facility] ST[facility] [id number] [facility] 2021-07-18 14:13:59 Outpatient [facility] STL[facility]C [id number] [facility] 2021-07-18 14:04:52 Outpatient [facility]LMLC STLMLC [id number] [facility] 2021-07-18 11:13:00 Outpatient STLMLC STLMLC [id number] [facility] 2023-07-26 00:00:00 2023-07-26 00:00:00 Outpatient GC_GCBZW_Ka diyala_S PRIV PRIV [id number] [facility] 2023-06-02 00:00:00 2023-06-02 00:00:00 Outpatient GC_GCBZW_Ka diyala_S PRIV PRIV [id number] [facility] 2023-06-02 00:00:00 2023-06-02 00:00:00 Outpatient GC_GCBZW_Ka diyala_S PRIV PRIV [id number] [facility] 2023-05-17 00:00:00 2023-05-17 00:00:00 Outpatient GC_GCBZW_Ka diyala_S PRIV PRIV [id number] [facility] 2023-05-17 00:00:00 2023-05-17 00:00:00 Outpatient GC_GCBZW_Ka diyala_S PRIV PRIV [id number] [facility] 2023-05-17 00:00:00 2023-05-17 00:00:00 Outpatient GC_GCBZW_Ka diyala_S PRIV PRIV [id number] [facility] 2023-04-19 00:00:00 2023-04-19 00:00:00 Outpatient GC_GCBZW_Ka diyala_S PRIV PRIV [id number] [facility] 2023-04-15 00:00:00 2023-04-15 00:00:00 (F/U) Follow Up Visit STLMLC STLC [id number] [facility] 2023-03-22 00:00:00 2023-03-22 00:00:00 Outpatient GC_GCBZW_Ka diyala_S PRIV PRIV [id number] [facility] 2023-01-28 00:00:00 2023-01-28 00:00:00 Outpatient GC_GCBZW_Ka diyala_S PRIV PRIV [id number] [facility] 2023-01-28 00:00:00 2023-01-28 00:00:00 Outpatient GC_GCBZW_Ka diyala_S PRIV PRIV [id number] [facility] 2023-01-14 00:00:00 2023-01-14 00:00:00 OFFICE VISIT ESTAB PT LEVEL 4 [facility] [id number] [facility] [facility]:00:00 2023-01-07 00:00:00 Outpatient GC_GCBZW_Ka diyala_S PRIV PRIV [id number] [facility] 2023-01-07 00:00:00 2023-01-07 00:00:00 Outpatient GC_GCBZW_Ka diyala_S PRIV PRIV [id number] [facility] 2023-01-07 00:00:00 2023-01-07 00:00:00 Outpatient GC_GCBZW_Ka diyala_S PRIV PRIV [id number] [facility] 2023-01-07 00:00:00 2023-01-07 00:00:00 Outpatient GC_GCBZW_Ka diyala_S PRIV PRIV [id number] [facility] 2023-01-02 00:00:00 2023-01-02 00:00:00 Outpatient GC_GCBZW_Ka diyala_S PRIV PRIV [id number] [facility] 2022-10-08 00:00:00 2022-10-08 00:00:00 [id number] 2022-03-12 08:30:00 2022-03-12 08:30:00 Outpatient R ALFIE DIAZ [facility] [id number] [facility] 2022-03-07 00:00:00 2022-03-07 00:00:00 (TEL) [facility] [id number] [facility] 2022-03-06 00:00:00 2022-03-06 00:00:00 Pre Visit Outreach Ajay Templeher JONATHAN HANLEY 1..840.114 350.1.13.10 [id number] [id number] [facility] 2022-02-27 00:00:00 2022-02-27 00:00:00 Alfie Solorzano [facility] .840.114 350.1.13.10 [id number] [id number] [facility] 2022-02-15 00:00:00 2022-02-15 00:00:00 Refill Alfie Diaz [facility] 1..840.114 350.1.13.10 [id number] [id number] [facility] 2022-02-05 00:00:00 2022-02-05 00:00:00 OFFICE VISIT ESTAB PT LEVEL 4 STLMLC [facility] [id number] [facility] 2022-01-28 00:00:00 2022-01-28 00:00:00 Refill Alfie Diaz [facility] 1..840.114 350.1.13.10 [id number] [id number] [facility] 2022-01-16 00:00:00 2022-01-16 00:00:00 (TEL) STLMLC STL[facility]C [id number] [facility] 2022-01-14 00:00:00 2022-01-14 00:00:00 OFFICE VISIT ESTAB PT LEVEL 4 STLMLC STLMLC [id number] [facility] 2021-11-08 00:00:00 2021-11-08 00:00:00 OFFICE VISIT ESTAB PT LEVEL 4 STLMLC STLMLC [id number] [facility] 2021-11-02 00:00:00 2021-11-02 00:00:00 (TEL) STLMLC STLMLC [id number] [facility] 2021-11-01 15:30:00 2021-11-01 15:30:00 Outpatient R ALFIE DIAZ [facility] [id number] [facility] 2021-10-26 00:00:00 2021-10-26 00:00:00 (TEL) STLMLC STLMLC [id number] [facility] 2021-09-27 00:00:00 2021-09-27 00:00:00 (TEL) STLMLC STLMLC [id number] [facility] 2021-08-15 00:00:00 2021-08-15 00:00:00 Refill Alfie Diaz [facility] [id number] 350.1.13.10 [id number] [id number] [facility] 2021-07-25 00:00:00 2021-07-25 00:00:00 Refill Alfie Diaz [facility] 1.2.840.114 350.1.13.10 [id number] [id number] 134 [id number] [facility] 2021-07-19 16:00:00 2021-07-19 16:00:00 Outpatient R ALFIE DIAZ [facility] [id number] [facility] 2021-07-19 00:00:00 2021-07-19 00:00:00 Refill Jacoby Alfie [facility] [id number] [id number] [id number] [id number] [facility] 2021-06-12 00:00:00 2021-06-12 00:00:00 (IN/ASP) INJ ASP STLMLC STLMLC [id number] [facility] 2021-06-05 00:00:00 2021-06-05 00:00:00 (IN/ASP) INJ ASP STLMLC STLMLC [id number] [facility] 2021-05-28 00:00:00 2021-05-28 00:00:00 (IN/ASP) INJ ASP STLMLC STLMLC [id number] [facility] 2021-04-27 00:00:00 2021-04-27 00:00:00 (TEL) STLMLC STLMLC [id number] [facility] 2021-04-17 00:00:00 2021-04-17 00:00:00 OFFICE VISIT [facility]AB [facility] [id number] 2020-07-19 14:30:00 2020-07-19 14:30:00 Outpatient ALFIE WALLACE [facility] [id number] [facility] 2020-07-19 00:00:00 2020-07-19 00:00:00 Orders Only Doctor Unassigned, [place] [facility] [id number] 350.1.13.10 4.2.7.2.686 [id number] 2020-07-19 00:00:00 2020-07-19 00:00:00 Orders Only Doctor Unassigned, [place] [facility] [id number] [id number] [id number] [id number] [facility] 2020-01-17 11:00:00 2020-01-17 11:00:00 [facility] [id number] [facility] 2019-12-30 15:30:00 2019-12-30 15:30:00 [facility] [id number] [facility] 2019-12-22 11:00:00 2019-12-22 11:00:00 Outpatient [facility] [id number] [facility] 2019-12-06 13:39:00 2019-12-06 13:39:00 [facility] [id number] [facility] 2019-11-10 14:42:00 2019-11-10 14:42:00 Outpatient [facility] [id number] [facility] 2019-11-04 15:45:00 2019-11-04 15:45:00 Outpatient [facility] [id number] [facility] 2019-09-06 15:30:00 2019-09-06 15:30:00 [facility] [id number] [facility] 2019-04-12 11:44:00 2019-04-12 11:44:00 [facility] [id number] [facility] 2019-02-23 16:22:00 2019-02-23 16:22:00 Out[facility] [id number] [facility] 2019-02-23 15:30:00 2019-02-23 15:30:00 Out[facility] [id number] [facility] 2019-02-09 13:26:00 2019-02-09 13:26:00 Out[facility] [id number] [facility] 2019-02-03 10:10:00 2019-02-03 10:10:00 Outpatient [facility] [id number] [facility] 2019-01-12 16:53:00 2019-01-12 16:53:00 Outpatient [facility] [id number] [facility] 2019-01-12 15:00:00 2019-01-12 15:00:00 Out[facility] [id number] [facility] 2019-01-05 12:43:00 2019-01-05 12:43:00 [facility] [place] [id number] [facility] 2019-01-04 16:36:00 2019-01-04 16:36:00 Outpatient [facility] [id number] [facility] 2018-12-17 10:00:00 2018-12-17 10:00:00 [facility] [id number] [facility] 2018-12-08 08:40:00 2018-12-08 08:40:00 Outpatient [facility] [id number] [facility] 2018-11-27 10:00:00 2018-11-27 10:00:00 Outpatient [facility] [id number] [facility] 2018-10-26 15:30:00 2018-10-26 15:30:00 Out[facility] [id number] [facility] 2018-09-14 15:30:00 2018-09-14 15:30:00 [facility] [id number] [facility] 2018-07-17 08:30:00 2018-07-17 08:30:00 Out[facility] [id number] [facility] 2018-07-09 20:39:00 2018-07-09 20:39:00 Out[facility] [id number] [facility] 2018-07-08 12:30:00 2018-07-08 12:30:00 Out[facility] [id number] [facility] 2018-07-07 15:00:00 2018-07-07 15:00:00 [facility] [id number] [facility] 2018-02-17 08:30:00 2018-02-17 08:30:00 [facility] [id number] [facility]
[2023-07-30 04:47] LABS: Absolute Lymphocytes (CBC) 2.7 K/uL (0.7-4.9); Hematocrit 44.4 % (36.0-45.0); Lymphocytes % 19.8 % (15.3-44.8); MCV 91.5 fL (80-100); MPV 7.1 fL (7.6-11.3); Platelets 262 thou/uL (152-406); RBC Red Blood Cell Count 4.85 M/uL (3.86-4.86)
[2023-07-30 04:53] LABS: Protime INR 1.1
[2023-07-30 05:10] LABS: Albumin 2.9 g/dL (3.4-5.0); Bilirubin Direct 0.1 mg/dL (0-0.2); Bilirubin Indirect, Calculated 0.3 mg/dL (0.2-0.8); Bilirubin Total 0.4 mg/dL (0.2-1.0); Magnesium 1.8 mg/dL (1.6-2.4); Potassium 3.9 mEq/L (3.5-5.1); Protein, Total 7.4 g/dL (6.4-8.2); Thyroid Stimulating Hormone 4.17 uIU/mL (0.358-3.740); Troponin High Sensitivity 14.4 pg/mL (<58.9)
--- NOTE | 2023-07-30 05:46 | EDPHYS ---
Physician Documentation [facility] Name: Erin Bray Age: 68 yrs Sex: Female : 1955 Arrival Date: 07/30/2023 Time: 00:04 Bed 2 Private MD: ED Physician Víctor Hyde HPI: 07/30 00:36 This 68 yrs old Female presents to ER via Wheelchair with complaints of sp4 Shortness Of Breath, Dizziness. 01:38 60-year-old female with history of hypothyroidism and diabetes presents with brief sp4 episode of shortness of breath starting at 8:30 PM lasting 30 minutes associated with headache and dizziness. Denied chest pain. Historical: - Allergies: 00:35 No Known Allergies; pf1 - PMHx: 00:35 High Cholesterol; Hypothyroidism; stress incontence; Diabetes mellitus; night sweats; pf1 seasonal allergies; - PSHx: 00:35 Left wrist sx; right knee sx; Right rotator sx; pf1 - Immunization history:: Adult Immunizations not up to date, Client reports having NOT received the Covid vaccine. Last tetanus immunization: > 10 years ago Flu vaccine is not up to date. - Social history:: Smoking status: Patient denies any tobacco usage or history of. Patient/guardian denies using alcohol, street drugs. - Family history:: not pertinent. ROS: 01:38 Constitutional: Negative for fever, chills, and weight loss, positive dyspnea, positive sp4 headache, positive dizziness 01:38 All other systems are negative, Exam: 01:38 Constitutional: This is a well developed, well nourished patient who is awake, alert, sp4 and in no acute distress. Head/Face: Normocephalic, atraumatic. Eyes: Pupils equal round and reactive to light, extra-ocular motions intact. Lids and lashes normal. Conjunctiva and sclera are not injected. Cornea within normal limits. Periorbital areas with no swelling, redness, or edema. ENT: Nares patent. No nasal discharge, no septal abnormalities noted. Tympanic membranes are normal and external auditory canals are clear. Oropharynx with no redness, swelling, or masses, exudates, or evidence of obstruction, uvula midline. Mucous membranes moist. Neck: Trachea midline, no thyromegaly or masses palpated, and no cervical lymphadenopathy. Supple, full range of motion without nuchal rigidity, or vertebral point tenderness. Chest/axilla: Normal chest wall appearance and motion. Nontender with no deformity. No lesions are appreciated. Cardiovascular: Regular rate and rhythm with a normal S1 and S2. No gallops, murmurs, or rubs. Normal PMI, no JVD. No pulse deficits. Respiratory: Lungs have equal breath sounds bilaterally, clear to auscultation and percussion. No rales, rhonchi or wheezes noted. No increased work of breathing, no retractions or nasal flaring. Abdomen/GI: Soft, non-tender, with normal bowel sounds. No distension or tympany. No guarding or rebound. No evidence of tenderness throughout. Back: No spinal tenderness. No costovertebral tenderness. Skin: Warm, dry with normal turgor. Normal color with no rashes, no lesions, and no evidence of cellulitis. MS/ Extremity: Pulses equal, no cyanosis. Neurovascular intact. Full, normal range of motion. Neuro: Awake and alert, GCS 15, oriented to person, place, time, and situation. Cranial nerves II-XII grossly intact. Motor strength 5/5 in all extremities. Sensory grossly intact. Psych: Awake, alert, with orientation to person, place and time. Behavior, mood, and affect are within normal limits 05:39 ECG was reviewed by the Attending Physician. EKG at 0 342 normal sinus rhythm at a sp4 rate of 77, no ST elevation or depression. Vital Signs: 00:31 BP 150 / 71; Pulse 86; Resp 18; Temp 98.3; Pulse Ox 96% on R/A; Weight 135.17 kg; pf1 Height 5 ft. 7 in. ; Pain 0/10; 03:40 BP 146 / 73; Pulse 78; Resp 18 S; Pulse Ox 97% on R/A; ha1 04:42 BP 126 / 61; Pulse 72; Resp 17 S; Pulse Ox 97% on R/A; ha1 05:40 BP 133 / 74; Pulse 71; Resp 19 S; Pulse Ox 96% on R/A; ha1 00:31 Body Mass Index 46.67 (135.17 kg, 170.18 cm) pf1 00:31 Pain Scale: Adult pf1 MDM: 01:37 Patient medically screened. sp4 05:37 Data reviewed: vital signs, nurses notes, lab test result(s), EKG, radiologic studies, sp4 plain films. ED course: EXAM: XR Chest, 1 View CLINICAL HISTORY: The patient is 68 years old and is Female; CHEST PAIN TECHNIQUE: Frontal view of the chest. COMPARISON: No relevant prior studies available. FINDINGS: Lungs: Mildly prominent interstitial markings. No consolidation. Pleural space: Unremarkable. No pneumothorax. Heart: Unremarkable. Mediastinum: Unremarkable. Normal mediastinal contour. Bones/joints: No acute findings. IMPRESSION: No acute findings in the chest. . 05:39 Differential diagnosis: asthma, Bronchitis CHF exacerbation, Chronic Obstructive sp4 Pulmonary Disease pneumonia, Psychogenic. ED course: Feels better. 07/30 00:37 Order name: Basic Metabolic Panel; Complete Time: 05:35 sp4 07/30 00:37 Order name: CBC with Diff; Complete Time: 05:09 sp4 07/30 00:37 Order name: LFT's; Complete Time: 05:35 sp4 07/30 00:37 Order name: Magnesium; Complete Time: 05:35 sp4 07/30 00:37 Order name: NT PRO-BNP; Complete Time: 05:35 sp4 07/30 00:37 Order name: PT-INR; Complete Time: 05:09 sp4 07/30 00:37 Order name: Troponin HS; Complete Time: 05:35 sp4 07/30 04:43 Order name: T4 Free; Complete Time: 05:35 EDMS 07/30 04:43 Order name: Thyroid Stimulating Hormone; Complete Time: 05:35 EDMS 07/30 00:37 Order name: XRAY Chest (1 view) sp4 07/30 00:37 Order name: EKG; Complete Time: 00:37 sp4 07/30 00:37 Order name: Cardiac monitoring; Complete Time: 04:39 sp4 07/30 00:37 Order name: EKG - Nurse/Tech; Complete Time: 04:39 sp4 07/30 00:37 Order name: IV Saline Lock; Complete Time: 04:39 sp4 07/30 00:37 Order name: Labs collected and sent; Complete Time: 04:39 sp4 07/30 00:37 Order name: O2 Per Protocol; Complete Time: 04:39 sp4 07/30 00:37 Order name: O2 Sat Monitoring; Complete Time: 04:39 sp4 EC:39 Rate is 77 beats/min. Rhythm is regular, Normal Sinus Rhythm. QRS [place] is Normal. NE sp4 interval is normal. QRS interval is normal. QT interval is normal. No Q waves. T waves are Normal. No ST changes noted. Clinical impression: Normal ECG. Interpreted by me. Reviewed by me. Administered Medications: No medications were administered Disposition Summary: 07/30/23 05:45 Discharge Ordered Notes: Please ask your primary MD to repeat your CBC in 7 to 14 days Location: Home sp4 Problem: new sp4 Symptoms: have improved sp4 Condition: Stable sp4 Diagnosis - Dyspnea sp4 Followup: sp4 - With: Private Physician - When: 7 - 10 days - Reason: Recheck today's complaints Discharge Instructions: - Discharge Summary Sheet sp4 - Shortness of Breath, Adult, [id number] sp4 Forms: - Patient Portal Instructions sp4 Signatures: Dispatcher [employer] EDGlendy Goel RN RN pf1 Víctor Hyde MD MD sp4 Corrections: (The following items were deleted from the chart) 04:43 01:37 THYROID STIMULAT HORMONE+C.LAB.BRZ ordered. EDMS EDMS 04:43 01:37 T4 FREE+C.LAB.BRZ ordered. EDMS EDMS
--- NOTE | 2023-07-30 05:46 | ER ---
Nurse's Notes [facility] Name: Erin Bray Age: 68 yrs Sex: Female : 1955 Arrival Date: 07/30/2023 Time: 00:04 Bed 2 Private MD: Diagnosis: Dyspnea Presentation: 07/30 00:31 Chief complaint: Patient states: dizziness with SOB,onset 2029. Patient stated has a pf1 history of vertigo. Coronavirus screen: Vaccine status: Patient reports being unvaccinated. Client denies travel out of the [place] in the last 14 days. Client presents with at least one sign or symptom that may indicate coronavirus-19. Ebola Screen: Patient negative for fever greater than or equal to 101.5 degrees Fahrenheit, and additional compatible Ebola Virus Disease symptoms. Initial Sepsis Screen: Does the patient meet any 2 criteria? No. Patient's initial sepsis screen is negative. Does the patient have a suspected source of infection? No. Patient's initial sepsis screen is negative. Risk Assessment: Do you want to hurt yourself or someone else? Patient reports no desire to harm self or others. 00:31 Method Of Arrival: Wheelchair pf1 00:31 Acuity: YOUNG 3 pf1 00:31 Onset of symptoms was July 30, 2023. ha1 Triage Assessment: 03:40 Respiratory: the patient has mild shortness of breath. ha1 Historical: - Allergies: 00:35 No Known Allergies; pf1 - PMHx: 00:35 High Cholesterol; Hypothyroidism; stress incontence; Diabetes mellitus; night sweats; pf1 seasonal allergies; - PSHx: 00:35 Left wrist sx; right knee sx; Right rotator sx; pf1 - Immunization history:: Adult Immunizations not up to date, Client reports having NOT received the Covid vaccine. Last tetanus immunization: > 10 years ago Flu vaccine is not up to date. - Social history:: Smoking status: Patient denies any tobacco usage or history of. Patient/guardian denies using alcohol, street drugs. - Family history:: not pertinent. Screenin:44 [facility] ED Fall Risk Assessment (Adult) History of falling in the last 3 months, ha1 including since admission No falls in past 3 months (0 pts) Confusion or Disorientation No (0 pts) Intoxicated or Sedated No (0 pts) Impaired Gait No (0 pts) Mobility Assist Device Used No (0 pt) Altered Elimination No (0 pt) Score/Fall Risk Level 0 - 2 = Low Risk Oriented to surroundings, Maintained a safe environment, Hourly rounding (assess needs \T\ fall precautionary measures) done. Abuse screen: Denies threats or abuse. Denies injuries from another. Nutritional screening: No deficits noted. Tuberculosis screening: No symptoms or risk factors identified. Assessment: 03:00 General: Appears comfortable, Behavior is calm, cooperative. Pain: Denies pain. Neuro: ha1 Level of Consciousness is awake, alert, obeys commands, Oriented to person, place, time, situation, Reports dizziness. Cardiovascular: Capillary refill < 3 seconds Patient's skin is warm and dry. Cardiovascular: Rhythm is sinus rhythm. Respiratory: Airway is patent Respiratory effort is even, unlabored, Respiratory pattern is regular, symmetrical, Breath sounds are clear bilaterally. Respiratory: Reports shortness of breath at rest. GI: No signs and/or symptoms were reported involving the gastrointestinal system. Abdomen is round non-distended. Derm: Skin is pink, warm \T\ dry. Musculoskeletal: Circulation, motion, and sensation intact. Range of motion: intact in all extremities. 04:43 Reassessment: Patient and/or family updated on plan of care and expected duration. Pain ha1 level reassessed. Patient is alert, oriented x 3, equal unlabored respirations, skin warm/dry/pink. Patient states feeling better. Patient states symptoms have improved. Vital Signs: 00:31 BP 150 / 71; Pulse 86; Resp 18; Temp 98.3; Pulse Ox 96% on R/A; Weight 135.17 kg; pf1 Height 5 ft. 7 in. ; Pain 0/10; 03:40 BP 146 / 73; Pulse 78; Resp 18 S; Pulse Ox 97% on R/A; ha1 04:42 BP 126 / 61; Pulse 72; Resp 17 S; Pulse Ox 97% on R/A; ha1 05:40 BP 133 / 74; Pulse 71; Resp 19 S; Pulse Ox 96% on R/A; ha1 00:31 Body Mass Index 46.67 (135.17 kg, 170.18 cm) pf1 00:31 Pain Scale: Adult pf1 ED Course: 07/29 00:36 Arm band placed on right wrist. ha1 02/07 00:17 Patient arrived in ED. [email or web address] 00:35 Triage completed. pf1 00:36 Víctor Hyde MD is Attending Physician. sp4 01:14 XRAY Chest (1 view) In Process Unspecified. EDMS 03:40 Patient has correct armband on for positive identification. Placed in gown. Bed in low ha1 position. Call light in reach. Side rails up X 1. Adult w/ patient. 04:00 Inserted saline lock: 20 gauge in right antecubital area, using aseptic technique. ha1 Blood collected. 04:39 Basic Metabolic Panel Sent. ha1 04:39 CBC with Diff Sent. ha1 04:39 LFT's Sent. ha1 04:39 Magnesium Sent. ha1 04:39 NT PRO-BNP Sent. ha1 04:39 PT-INR Sent. ha1 04:39 Troponin HS Sent. ha1 06:10 No provider procedures requiring assistance completed. IV discontinued, intact, ha1 bleeding controlled, No redness/swelling at site. Pressure dressing applied. 06:25 Provided Education on: need to follow up with PCP. ha1 Administered Medications: No medications were administered Medication: 04:45 VIS not applicable for this client. ha1 Outcome: 05:45 Discharge ordered by . sp4 06:25 Condition: stable ha1 06:25 Discharged to home via wheelchair, ha1 06:25 Discharge instructions given to patient, Instructed on discharge instructions, follow up and referral plans. Demonstrated understanding of instructions, follow-up care, 06:25 Patient left the ED. ha1 Signatures: Dispatcher [employer] EDID Brenda Huff [email or web address] Radha Molina, RN RN 1 Glendy Reyna, RN RN pf1 Víctor Hyde MD MD sp4 Corrections: (The following items were deleted from the chart) 04:43 04:40 T4 FREE+C.LAB.BRZ drawn and sent. ha1 EDMS 04:43 04:40 THYROID STIMULAT HORMONE+C.LAB.BRZ drawn and sent. ha1 EDMS 06:42 06:41 Patient left the ED. ha1 ha1
--- NOTE | 2023-07-30 10:27 | RAD REPORT ---
EXAM DESCRIPTION: RAD - Chest Single View - 07/30/2023 1:12 am CLINICAL HISTORY: The patient is 68 years old and is Female; CHEST PAIN TECHNIQUE: Frontal view of the chest. COMPARISON: No relevant prior studies available. FINDINGS: Lungs: Mildly prominent interstitial markings. No consolidation. Pleural space: Unremarkable. No pneumothorax. Heart: Unremarkable. Mediastinum: Unremarkable. Normal mediastinal contour. Bones/joints: No acute findings. IMPRESSION: No acute findings in the chest. Electronically signed by: Deandre Kam MD 07/30/2023 01:27 AM ACCOUNTANT COST Due to temporary technical issues with the PACS/Fluency reporting system, reports are being signed by the in house radiologist without review as a courtesy to ensure prompt reporting. The interpreting r adiologist is fully responsible for the content of the report.
--- NOTE | 2023-07-30 16:39 | EKG ---
Test Date: 2023-07-30 Test Time: 03:42:45 Senior Corporate Recruiter: LAURIE MEASUREMENT RESULTS: Intervals: Rate: 77 [place]: 174 QRSD: 84 QT: 396 QTc: 448 [place]: P: 69 AZ: 174 QRS: 3 T: 62 INTERPRETIVE STATEMENTS: Normal sinus rhythm Low voltage QRS Borderline ECG Compared to ECG 11/24/2018 15:53:44 Low QRS voltage now present Myocardial infarct finding no longer present Electronically Signed On 07-30-23 16:38:58 DENTAL ASSISTANT MEDICAL ASSISTANT by Chava Dennis
[2023-07-31 18:36] VITALS: BP 126/61; TEMP 98.3; O2SAT 97
== END ==
LOC: ER 00:04
DX: R06.00 Dyspnea, unspecified (principal); E11.9 Type 2 diabetes mellitus without complications; E03.9 Hypothyroidism, unspecified; Z28.310 Unvaccinated for COVID-19
CPT/HCPCS: 36415; 71045; 80048; 80076; 83735; 83880; 84439; 84443; 84484; 85025; 85610; 93005

== ENCOUNTER 2024-07-27 17:48 | Emergency (ER) | payer OTHER ==
--- OUTSIDE RECORDS SUMMARY | 2024-07-27 17:52 | XMS REPORT | Continuity of Care Document ---
Author Name Unknown Address [address] [facility] [address] [place] [address] [facility] thconnect Address [address] [facility] [address] [place] [address] Care Team Providers Care Kiln Firer Name Role Phone MARCELA BOYD Primary Care Physician Unav ailable [email or web address] Attending Clinician ALFIE Yoder Attending Clinician Unavailable Roxy Temple MA Attending Clinician Alfie Ching MD Attending Clinician Doctor Unassigned, [place] Attending Clinician U navailable [email or web address]_S Admitting Clinician Cesar montero Payers Payer Name Policy Type Policy Number Effective Date Expiration Date Source [facility] Supplemental 53 [id number] [facility] MEDICARE [place]: [place]OV[place] [id number] 2021 00:00:00 [employer] INSURANCE KOALA.[place] (MEDICARE SUPPLEMENT) [id number] BLUE ESSENTIALS O [id number] 2020 00:00:00 Blue Cross Blue [facility] C1 [id number] [facility] [place] [address] [id number] [facility] Problems Condition Name Condition Details Condition Category Status Onset Date Resolution Date Last Treatment Date Treating Clinician Comments Source Cyst of kidney Cyst of Kidney Problem Active 8-15 00:00: 00 [facility] Morbid obesity Morbid Obesity Problem Active 6-04 00:00: 00 [facility] Recurrent urinary tract infection Recurrent Urinary Tract Infection Problem Active 6-04 00:00: 00 [facility] Urgent desire to urinate Urgent Desire to Urinate Problem Active 6-04 00:00: 00 [facility] 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 Problem Active 6-04 00:00: 00 [facility] Elevated blood-pres sure reading without diagnosis of hypertensi on Elevated Blood-pres sure Reading without Diagnosis of Hypertensi on Problem Active 1-09 00:00: 00 [facility] Uterovagin al prolapse Uterovagin al Prolapse Problem Active 7-18 00:00: 00 [facility] Atrophic vaginitis Atrophic Vaginitis Problem Active 7-18 00:00: 00 [facility] Urge incontinen ce of urine Urge Incontinen ce of Urine Problem Active 7-18 00:00: 00 [facility] Overactive urinary bladder Overactive Urinary Bladder Problem Active 7-18 00:00: 00 [facility] Lateral cystocele Lateral Cystocele Problem Active 2-10 00:00: 00 [facility] Genuine stress incontinen ce Genuine Stress Incontinen ce Problem Active 2-10 00:00: 00 [facility] Muscle atrophy Muscle Atrophy Problem Active 2-08 00:00: 00 [facility] Rupture of right rotator cuff Rupture of right rotator cuff Disease Active 1-20 00:00: 00 [facility] [id number] Primary osteoarthr itis, left shoulder Problem Active [facility] [id number] Tear of left rotator cuff, unspecifie d tear extent, unspecifie d whether traumatic Problem Active [facility] Arthritis of right knee Arthritis of right knee Problem Active [facility] Arthritis of left knee Arthritis of knee, left Problem Active [facility] [id number] Primary osteoarthr itis of left knee Problem Active [facility] [id number] Tear of right rotator cuff, unspecifie d tear extent Problem Active [facility] [id number] Primary osteoarthr itis of both knees Problem Active [facility] Osteoarthr itis of knee Osteoarthr itis of knee, unilateral Problem Active [facility] [id number] Primary osteoarthr itis of right knee Problem Active [facility] Arthritis of both knees Arthritis of both knees Problem [facility] Allergies, Adverse Reactions, Alerts Allergy Name Allergy Type Status Severity Reaction(s) Onset Date Inactive Date Treating Clinician Comments Source MELOXICA M DRUG INGREDI Active Unknown-Cmnt 2020-06 2 00:00: 00 [facility] meloxica m meloxica m Active Unknown [facility] NO KNOWN ALLERGIE S Drug Class Active [facility] Social History Social Habit Start Date Stop Date Quantity Comments Source History of Tobacco Use [facility] Sex Assigned At [facility] Tobacco use and exposure 2020-07-19 00:00:00 2020-07-19 00:00:00 Smokeless tobacco non-user [facility] Alcohol intake 2020-07-19 00:00:00 2020-07-19 00:00:00 Current non-drinker of alcohol (finding) [facility] Smoking Status Start Date Stop Date Source Never Smoker [facility] Medications Ordered Medication Name Filled Medication Name Start Date Stop Date Current Medication? Ordering Clinician Indication Dosage Frequency Signature (SIG) Comments Components Source BUPivacaine HCl BUPivacaine HCl 1-25 00:00: 00 No 4mL [facility] Kenalog (Triamcinol one) Kenalog (Triamcinol one) 4-18 00:00: 00 No 1mL [facility] FLUOXETINE 40 mg capsule 2-23 00:00: 00 Yes [id number] TAKE ONE (1) CAPSULE(S) BY MOUTH ONCE A DAY. [facility] oxybutynin XL 5 mg 24 hr tablet 07-27 00:00: 00 Yes [id number] 5mg Take 1 tablet by mouth daily. [facility] Bupivicaine [place] Bupivicaine [place] 2020-06 00:00: 00 No 2.5mg [facility] Hyalgan 20 mg Hyalgan 20 mg 2020-06 00:00: 00 No 20mg [facility] atorvastati n (LIPITOR) 40 mg tablet 07-19 14:57: 34 Yes 40mg Take 40 mg by mouth at bedtime. [facility] LEVOTHYROXI NE SODIUM (LEVOTHYROX INE ORAL) 07-19 14:57: 34 Yes Take by mouth. [facility] oxybutynin XL 5 mg 24 hr tablet 07-19 00:00: 00 Yes [id number] 5mg Take 1 tablet by mouth daily. [facility] FLUoxetine 40 mg capsule 07-19 00:00: 00 08-15 00:00 :00 No [id number] 40mg Take 1 capsule by mouth daily. [facility] levothyroxi ne 50 mcg tablet 2019-06 00:00: 00 Yes 50ug Take 50 mcg by mouth every morning. [facility] Visco-3 Visco-3 12-21 00:00: 00 No 2.5mL [facility] LIDOCAINE HCL 10MG/ML LIDOCAINE HCL 10MG/ML 12-21 00:00: 00 No 4mL [facility] Supartz Supartz 2017-06 00:00: 00 No 2.5mL [facility] Betamethaso ne Sodium Phosphate Betamethaso ne Sodium Phosphate 2017-06 00:00: 00 No 1mL [facility] atorvastati n (LIPITOR) 40 mg tablet 08-31 20:54: 40 Yes 40mg Take 40 mg by mouth at bedtime. [facility] LEVOTHYROXI NE SODIUM (LEVOTHYROX INE ORAL) 08-31 20:54: 40 Yes Take by mouth. [facility] FEXOFENADIN E HCL (FAVIOLA ORAL) 08-31 20:54: 40 Yes Take by mouth. [facility] FLUoxetine (PROZAC) 20 mg capsule 08-31 20:54: 40 Yes 20mg Take 20 mg by mouth at bedtime. [facility] ciprofloxac in 500 mg tablet TAKE ONE (1) TABLET(S) BY MOUTH DAILY. ciprofloxac in 500 mg tablet TAKE ONE (1) TABLET(S) BY MOUTH DAILY. No ciprofloxa delores 500 mg tablet TAKE ONE (1) TABLET(S) BY MOUTH DAILY. [facility] cyclobenzap rine 10 mg tablet cyclobenzap rine 10 mg tablet No cyclobenza leni 10 mg tablet [facility] diazepam 10 mg tablet TAKE ONE (1) TABLET BY MOUTH NIGHT BEFORE PROCEDURE AND 1 TABLET 1 HOUR PRIOR TO PROCEDURE. diazepam 10 mg tablet TAKE ONE (1) TABLET BY MOUTH NIGHT BEFORE PROCEDURE AND 1 TABLET 1 HOUR PRIOR TO PROCEDURE. No diazepam 10 mg tablet TAKE ONE (1) TABLET BY MOUTH NIGHT BEFORE PROCEDURE AND 1 TABLET 1 HOUR PRIOR TO PROCEDURE. [facility] Ellura 206 mg capsule Take 2 capsules every day by oral route for 90 days. Ellura 206 mg capsule Take 2 capsules every day by oral route for 90 days. No 2capsul e(s) Q1D Ellura 206 mg capsule Take 2 capsules every day by oral route for 90 days. [facility] fosfomycin tromethamin e 3 gram oral packet MIX AND TAKE 1 PACKET BY MOUTH TODAY FOR 1 DOSE. fosfomycin tromethamin e 3 gram oral packet MIX AND TAKE 1 PACKET BY MOUTH TODAY FOR 1 DOSE. No fosfomycin tromethami ne 3 gram oral packet MIX AND TAKE 1 PACKET BY MOUTH TODAY FOR 1 DOSE. [facility] Myrbetriq 50 mg tablet,exte nded release 1 tablet; Once a day Myrbetriq 50 mg tablet,exte nded release 1 tablet; Once a day No Myrbetriq 50 mg tablet,ext ended release 1 tablet; Once a day [facility] albuterol sulfate HFA 90 mcg/actuati on aerosol inhaler INHALE TWO (2) PUFF(S) BY MOUTH EVERY FOUR TO SIX HOURS NEEDED. CAN USE WITH SPACER. albuterol sulfate HFA 90 mcg/actuati on aerosol inhaler INHALE TWO (2) PUFF(S) BY MOUTH EVERY FOUR TO SIX HOURS NEEDED. CAN USE WITH SPACER. No albuterol sulfate HFA 90 mcg/actuat ion aerosol inhaler INHALE TWO (2) PUFF(S) BY MOUTH EVERY FOUR TO SIX HOURS NEEDED. CAN USE WITH SPACER. [facility] Allergy Allergy No Allergy [facility] Azo Bladder Control Azo Bladder Control No Azo Bladder Control [facility] budesonide- formoterol HFA 80 mcg-4.5 mcg/actuati on aerosol inhaler INHALE TWO (2) PUFF(S) BY MOUTH TWICE A DAY (IN THE MORNING AND IN THE EVENING). budesonide- formoterol HFA 80 mcg-4.5 mcg/actuati on aerosol inhaler INHALE TWO (2) PUFF(S) BY MOUTH TWICE A DAY (IN THE MORNING AND IN THE EVENING). No budesonide -formotero l HFA 80 mcg-4.5 mcg/actuat ion aerosol inhaler INHALE TWO (2) PUFF(S) BY MOUTH TWICE A DAY (IN THE MORNING AND IN THE EVENING). [facility] [employer] Contour Next Test Strips USE ONCE DAILY. Contour Next Test Strips USE ONCE DAILY. No Contour Next Test Strips USE ONCE DAILY. [facility] escitalopra m 20 mg tablet TAKE ONE (1) TABLET(S) BY MOUTH DAILY. escitalopra m 20 mg tablet TAKE ONE (1) TABLET(S) BY MOUTH DAILY. No escitalopr am 20 mg tablet TAKE ONE (1) TABLET(S) BY MOUTH DAILY. [facility] estradiol 0.01% (0.1 mg/gram) vaginal cream INSERT (0.5 GM) WITH APPLICATOR VAGINALLY THREE TIMES A WEEK. estradiol 0.01% (0.1 mg/gram) vaginal cream INSERT (0.5 GM) WITH APPLICATOR VAGINALLY THREE TIMES A WEEK. No estradiol 0.01% (0.1 mg/gram) vaginal cream INSERT (0.5 GM) WITH APPLICATOR VAGINALLY THREE TIMES A WEEK. [facility] fluocinolon e acetonide oil 0.01 % ear drops INSTILL FIVE (5) DROPS IN AFFECTED EAR(S) TWICE A DAY. fluocinolon e acetonide oil 0.01 % ear drops INSTILL FIVE (5) DROPS IN AFFECTED EAR(S) TWICE A DAY. No fluocinolo ne acetonide oil 0.01 % ear drops INSTILL FIVE (5) DROPS IN AFFECTED EAR(S) TWICE A DAY. [facility] fluocinonid e 0.05 % topical solution APPLY TO SCALP TWICE A DAY FOR 2 WEEKS/MONTH . fluocinonid e 0.05 % topical solution APPLY TO SCALP TWICE A DAY FOR 2 WEEKS/MONTH . No fluocinoni de 0.05 % topical solution APPLY TO SCALP TWICE A DAY FOR 2 WEEKS/THAO H. [facility] levothyroxi ne 125 mcg tablet TAKE ONE (1) TABLET(S) BY MOUTH ONCE A DAY IN THE MORNING. levothyroxi ne 125 mcg tablet TAKE ONE (1) TABLET(S) BY MOUTH ONCE A DAY IN THE MORNING. No levothyrox ine 125 mcg tablet TAKE ONE (1) TABLET(S) BY MOUTH ONCE A DAY IN THE MORNING. [facility] meclizine 25 mg tablet TAKE ONE (1) TABLET(S) BY MOUTH THREE TIMES A DAY NEEDED FOR 10 DAYS. meclizine 25 mg tablet TAKE ONE (1) TABLET(S) BY MOUTH THREE TIMES A DAY NEEDED FOR 10 DAYS. No meclizine 25 mg tablet TAKE ONE (1) TABLET(S) BY MOUTH THREE TIMES A DAY NEEDED FOR 10 DAYS. [facility] meloxicam 15 mg tablet TAKE ONE (1) TABLET(S) BY MOUTH DAILY. meloxicam 15 mg tablet TAKE ONE (1) TABLET(S) BY MOUTH DAILY. No meloxicam 15 mg tablet TAKE ONE (1) TABLET(S) BY MOUTH DAILY. [facility] Microlet Lancet USE ONCE DAILY. Microlet Lancet USE ONCE DAILY. No Microlet Lancet USE ONCE DAILY. [facility] mometasone 50 mcg/actuati on nasal spray INSTILL TWO (2) SPRAY(S) INTO EACH NOSTRIL ONCE A DAY. mometasone 50 mcg/actuati on nasal spray INSTILL TWO (2) SPRAY(S) INTO EACH NOSTRIL ONCE A DAY. No mometasone 50 mcg/actuat ion nasal spray INSTILL TWO (2) SPRAY(S) INTO EACH NOSTRIL ONCE A DAY. [facility] montelukast 10 mg tablet TAKE ONE (1) TABLET(S) BY MOUTH EVERY MORNING. montelukast 10 mg tablet TAKE ONE (1) TABLET(S) BY MOUTH EVERY MORNING. No montelukas t 10 mg tablet TAKE ONE (1) TABLET(S) BY MOUTH EVERY MORNING. [facility] mupirocin 2 % topical ointment APPLY SMALL AMOUNT TO THE AFFECTED AREA INSIDE OF NOSE THREE TIMES A DAY. mupirocin 2 % topical ointment APPLY SMALL AMOUNT TO THE AFFECTED AREA INSIDE OF NOSE THREE TIMES A DAY. No mupirocin 2 % topical ointment APPLY SMALL AMOUNT TO THE AFFECTED AREA INSIDE OF NOSE THREE TIMES A DAY. [facility] naproxen 500 mg tablet TAKE ONE (1) TABLET(S) BY MOUTH TWICE A DAY WITH FOOD. naproxen 500 mg tablet TAKE ONE (1) TABLET(S) BY MOUTH TWICE A DAY WITH FOOD. No naproxen 500 mg tablet TAKE ONE (1) TABLET(S) BY MOUTH TWICE A DAY WITH FOOD. [facility] nitrofurant oin monohydrate /macrocryst als 100 mg capsule TAKE ONE (1) CAPSULE(S) BY MOUTH DAILY. nitrofurant oin monohydrate /macrocryst als 100 mg capsule TAKE ONE (1) CAPSULE(S) BY MOUTH DAILY. No nitrofuran toin monohydrat e/macrocry stals 100 mg capsule TAKE ONE (1) CAPSULE(S) BY MOUTH DAILY. [facility] omeprazole 40 mg capsule,del ayed release TAKE ONE (1) CAPSULE(S) BY MOUTH DAILY BEFORE A MEAL. omeprazole 40 mg capsule,del ayed release TAKE ONE (1) CAPSULE(S) BY MOUTH DAILY BEFORE A MEAL. No omeprazole 40 mg capsule,de layed release TAKE ONE (1) CAPSULE(S) BY MOUTH DAILY BEFORE A MEAL. [facility] Ozempic 0.25 mg or 0.5 mg (2 mg/3 mL) subcutaneou s pen injector INJECT 0.5 MG SUBCUTANEOU SLY WEEKLY. Ozempic 0.25 mg or 0.5 mg (2 mg/3 mL) subcutaneou s pen injector INJECT 0.5 MG SUBCUTANEOU SLY WEEKLY. No Ozempic 0.25 mg or 0.5 mg (2 mg/3 mL) subcutaneo us pen injector INJECT 0.5 MG SUBCUTANEO USLY WEEKLY. [facility] 1 mg/dose (4 mg/3 mL) subcutaneou s pen injector INJECT ONE (1) MG SUBCUTANEOU SLY ONCE WEEKLY. Ozempic 1 mg/dose (4 mg/3 mL) subcutaneou s pen injector INJECT ONE (1) MG SUBCUTANEOU SLY ONCE WEEKLY. No Ozempic 1 mg/dose (4 mg/3 mL) subcutaneo us pen injector INJECT ONE (1) MG SUBCUTANEO USLY ONCE WEEKLY. [facility] rosuvastati n 40 mg tablet TAKE ONE (1) TABLET(S) BY MOUTH ONCE A DAY. rosuvastati n 40 mg tablet TAKE ONE (1) TABLET(S) BY MOUTH ONCE A DAY. No rosuvastat in 40 mg tablet TAKE ONE (1) TABLET(S) BY MOUTH ONCE A DAY. [facility] sulfamethox azole 800 mg-trimetho prim 160 mg tablet TAKE ONE (1) TABLET(S) BY MOUTH EVERY TWELVE HOURS FOR 7 DAYS. sulfamethox azole 800 mg-trimetho prim 160 mg tablet TAKE ONE (1) TABLET(S) BY MOUTH EVERY TWELVE HOURS FOR 7 DAYS. No sulfametho xazole 800 mg-trimeth oprim 160 mg tablet TAKE ONE (1) TABLET(S) BY MOUTH EVERY TWELVE HOURS FOR 7 DAYS. [facility] triamcinolo ne acetonide 0.1 % topical cream APPLY TO AFFECTED AREA ON TRUNK AND EXTREMITIES TWICE DAILY FOR TWO WEEKS PER MONTH. triamcinolo ne acetonide 0.1 % topical cream APPLY TO AFFECTED AREA ON TRUNK AND EXTREMITIES TWICE DAILY FOR TWO WEEKS PER MONTH. No triamcinol one acetonide 0.1 % topical cream APPLY TO AFFECTED AREA ON TRUNK AND EXTREMITIE S TWICE DAILY FOR TWO WEEKS PER MONTH. [facility] Vitamin B12 Vitamin B12 No Vi tamin B12 [facility] Vitamin C Vitamin C No Vitamin C [facility] zinc zinc No zinc [facility] Rosuvastati n Calcium 40 MG Rosuvastati n Calcium 40 MG No 1{table t} QD Rosuvastat in Calcium 40 MG Montelukast Sodium 10 MG Montelukast Sodium 10 MG No 1{table t} QD Montelukas t Sodium 10 MG Zinc 50 MG Zinc 50 MG No 1{ table t} QD Zinc 50 MG Albuterol Sulfate HFA 108 (90 Base) MCG/ACT Albuterol Sulfate HFA 108 (90 Base) MCG/ACT No 1{puff_ as_need ed} 6xD Albuterol Sulfate HFA 108 (90 Base) MCG/ACT Escitalopra m Oxalate 20 MG Escitalopra m Oxalate 20 MG No 1{table t} QD Escitalopr am Oxalate 20 MG Levothyroxi ne Sodium 125 MCG Levothyroxi ne Sodium 125 MCG No QD Levothyrox ine Sodium 125 MCG Meloxicam 15 MG Meloxicam 15 MG No 1{table t} QD Meloxicam 15 MG Vitamin B Complex Vitamin B Complex No Vitamin B Complex Nitrofurant oin Macrocrysta l 100 MG Nitrofurant oin Macrocrysta l 100 MG No QD Nitrofuran toin Macrocryst al 100 MG Vitamin D3 250 MCG (97775 UT) Vitamin D3 250 MCG (22216 UT) No 1{capsu le} QD Vitamin D3 250 MCG (74699 UT) Acetaminoph en 500 MG Acetaminoph en 500 MG No 1{capsu le_as_n eeded} QID Acetaminop hen 500 MG Vital Signs Vital Name Observation Time Observation Value Comments S ource height 2024-03-24 09:45:00 67 [in_i] Commo n [facility] weight 2024-03-24 09:45:00 292.5 [lb_av] Co mmon [facility] temperature 2024-03-24 09:45:00 97.5 [degF] Com mon [facility] bmi 2024-03-24 09:45:00 45.81 kg/m2 Comm on [facility] blood pressure systolic 2024-03-24 09:45:00 135 mm[Hg] [facility] blood pressure diastolic 2024-03-24 09:45:00 89 mm[Hg] [facility] BP Systolic 2023-11-25 00:00:00 142 mm[Hg] [facility] BP Diastolic 2023-11-25 00:00:00 77 mm[Hg] [facility] Weight 2023-11-25 00:00:00 317 [lb_av] [facility] BMI (Body Mass Index) 2023-11-25 00:00:00 49.6 kg/m2 [facility] Height 2023-11-25 00:00:00 67 [in_i] [facility] height 2023-11-24 14:00:00 67 [in_i] Commo n [facility] weight 2023-11-24 14:00:00 295 [lb_av] Comm on [facility] temperature 2023-11-24 14:00:00 98.4 [degF] Com [facility] bmi 2023-11-24 14:00:00 46.2 kg/m2 Commo n [facility] blood pressure systolic 2023-11-24 14:00:00 132 mm[Hg] Common [facility] blood pressure diastolic 2023-11-24 14:00:00 84 mm[Hg] [facility] height 2023-07-17 15:00:00 67 [in_i] Commo n [facility] weight 2023-07-17 15:00:00 298 [lb_av] Comm on [facility] temperature 2023-07-17 15:00:00 98.0 [degF] Com [facility] bmi 2023-07-17 15:00:00 46.67 kg/m2 Comm on [facility] blood pressure systolic 2023-07-17 15:00:00 120 mm[Hg] [facility] blood pressure diastolic 2023-07-17 15:00:00 84 mm[Hg] [facility] height 2023-04-15 14:00:00 67 [in_i] Commo n [facility] weight 2023-04-15 14:00:00 304 [lb_av] Comm on [facility] temperature 2023-04-15 14:00:00 98.4 [degF] Com [facility] bmi 2023-04-15 14:00:00 47.61 kg/m2 Comm on [facility] blood pressure systolic 2023-04-15 14:00:00 112 mm[Hg] [facility] blood pressure diastolic 2023-04-15 14:00:00 70 mm[Hg] [facility] height 2023-01-14 15:30:00 67 [in_i] Commo n [facility] weight 2023-01-14 15:30:00 315 [lb_av] Comm on [facility] bmi 2023-01-14 15:30:00 49.33 kg/m2 Comm on [facility] blood pressure systolic 2023-01-14 15:30:00 136 mm[Hg] [facility] blood pressure diastolic 2023-01-14 15:30:00 86 mm[Hg] [facility] height 2022-10-08 14:30:00 67 [in_i] Commo n [facility] weight 2022-10-08 14:30:00 321 [lb_av] Comm on [facility] temperature 2022-10-08 14:30:00 96.7 [degF] Com mon [facility] bmi 2022-10-08 14:30:00 50.27 kg/m2 Comm on [facility] blood pressure systolic 2022-10-08 14:30:00 144 mm[Hg] [facility] blood pressure diastolic 2022-10-08 14:30:00 88 mm[Hg] [facility] height 2022-02-05 14:00:00 67 [in_i] Commo n [facility] weight 2022-02-05 14:00:00 200 [lb_av] Comm on [facility] temperature 2022-02-05 14:00:00 97.2 [degF] Com mon [facility] bmi 2022-02-05 14:00:00 31.32 kg/m2 Comm on [facility] blood pressure systolic 2022-02-05 14:00:00 136 mm[Hg] [facility] blood pressure diastolic 2022-02-05 14:00:00 84 mm[Hg] [facility] height 2022-01-14 14:00:00 67 [in_i] Commo n [facility] weight 2022-01-14 14:00:00 305 [lb_av] Comm on [facility] bmi 2022-01-14 14:00:00 47.76 kg/m2 Comm on [facility] blood pressure systolic 2022-01-14 14:00:00 136 mm[Hg] [facility] blood pressure diastolic 2022-01-14 14:00:00 84 mm[Hg] [facility] height 2021-11-08 08:30:00 67 [in_i] Commo n [facility] weight 2021-11-08 08:30:00 299 [lb_av] Comm on [facility] temperature 2021-11-08 08:30:00 96.2 [degF] Com mon [facility] bmi 2021-11-08 08:30:00 46.82 kg/m2 Comm on [facility] blood pressure systolic 2021-11-08 08:30:00 142 mm[Hg] [facility] blood pressure diastolic 2021-11-08 08:30:00 86 mm[Hg] [facility] blood pressure diastolic 2021-06-12 15:30:00 84 mm[Hg] [facility] height 2021-06-12 15:30:00 67 [in_i] Commo n [facility] weight 2021-06-12 15:30:00 307 [lb_av] Comm on [facility] temperature 2021-06-12 15:30:00 97.2 [degF] Com [facility] bmi 2021-06-12 15:30:00 48.08 kg/m2 Comm on [facility] blood pressure systolic 2021-06-12 15:30:00 136 mm[Hg] [facility] height 2021-06-05 15:30:00 67 [in_i] Commo n [facility] weight 2021-06-05 15:30:00 307 [lb_av] Comm on [facility] bmi 2021-06-05 15:30:00 48.08 kg/m2 Comm on [facility] blood pressure systolic 2021-06-05 15:30:00 131 mm[Hg] [facility] blood pressure diastolic 2021-06-05 15:30:00 79 mm[Hg] Common [facility] height 2021-05-28 15:30:00 67 [in_i] Commo n [facility] weight 2021-05-28 15:30:00 307 [lb_av] Comm on [facility] temperature 2021-05-28 15:30:00 98.1 [degF] Com [facility] bmi 2021-05-28 15:30:00 48.08 kg/m2 Comm on [facility] blood pressure systolic 2021-05-28 15:30:00 132 mm[Hg] [facility] blood pressure diastolic 2021-05-28 15:30:00 84 mm[Hg] [facility] height 2021-04-17 15:00:00 67 [in_i] Commo n [facility] weight 2021-04-17 15:00:00 307 [lb_av] Comm on [facility] temperature 2021-04-17 15:00:00 97.1 [degF] Com [facility] bmi 2021-04-17 15:00:00 48.08 kg/m2 Comm on [facility] blood pressure systolic 2021-04-17 15:00:00 124 mm[Hg] [facility] blood pressure diastolic 2021-04-17 15:00:00 84 mm[Hg] [facility] Procedures Procedure Date / Time Performed Performing Clinician Source CT, urogram 2024-01-07 00:00:00 [facility] Cystoscopy 2022-09-21 00:00:00 Kj Hartmann edical EXTERNAL MAMMOGRAM 2022-02-19 13:00:00 Doctor Un assigned, [place] [facility] Excision of Basal Cell Carcinoma 2021-06-23 00:00:00 [facility] ASSIGNMENT OF BENEFITS 2020-07-19 20:33:23 Ronda trujillo Unassigned, [place] [facility] Complete Repair of Rotator Cuff 2018-06-23 00:00:00 [facility] Arthroplasty of Left Wrist 2015-06-23 00:00:00 [facility] Chondrectomy of Semilunar Cartilage of Knee 2004-06-23 00:00:00 [facility] Excision of Bunion 1991-06-23 00:00:00 [facility] Start Date/Time End Date/Time Encounter Type Admission Type Attending Clinicians Care Facility Care Department Encounter ID Source 2024-03-24 10:09:00 Outpatient [facility] [id number] [facility] 2023-10-18 09:14:00 Outpatient [facility] [id number] [facility] 2023-07-15 11:59:00 Outpatient [facility]MLC [facility] [id number] [facility] 2022-10-08 15:57:00 Outpatient [facility]MLC [facility] [id number] [facility] 2022-10-07 12:45:01 Outpatient [facility]MLC [facility] [id number] [facility] 2022-01-03 13:53:01 Outpatient [facility]C [facility] [id number] [facility] 2021-10-26 08:48:01 Outpatient [facility]C [facility] [id number] [facility] 2021-07-18 14:13:59 Outpatient [facility]C [facility] [id number] [facility] 2021-07-18 14:04:52 Outpatient [facility]LMLC [facility] [id number] [facility] 2021-07-18 11:13:00 Outpatient [facility]LMLC ST[facility] [id number] [facility] 2024-07-19 00:00:00 2024-07-19 00:00:00 (TEL) [facility]MLC [facility] [id number] [facility] 2024-07-19 00:00:00 2024-07-19 00:00:00 (TEL) [facility] [id number] [facility] 2024-05-31 00:00:00 2024-05-31 00:00:00 (TEL) [facility]C [id number] [facility] 2024-05-25 00:00:00 2024-05-25 00:00:00 (TEL) [facility] [id number] [facility] 2024-03-24 00:00:00 2024-03-24 00:00:00 OFFICE VISIT ESTAB PT LEVEL 4 [facility] ST[facility] [id number] [facility] 2024-02-05 00:00:00 2024-02-05 00:00:00 ESTELITA Verma: [address], [address], [place] [address] , Ph. [facility]* [id number] [facility] 2024-01-15 00:00:00 2024-01-15 00:00:00 Raven Parada MD: [address], [address], [place] [address] , Ph. [facility]* [id number] [facility] 2024-01-05 00:00:00 2024-01-05 00:00:00 Raven Parada MD: [address], [address], [place] [phone] , Ph. [facility] GC_GCBZW_[facility]* [id number] [facility] 2023-12-23 00:00:00 2023-12-23 00:00:00 Raven Parada MD: [address], [place] [phone] , Ph. [facility] GC_GCBZW_[facility]* [id number] [facility] 2023-12-10 00:00:00 2023-12-10 00:00:00 (TEL) [facility] [id number] [facility] 2023-11-25 00:00:00 2023-11-25 00:00:00 Raven Parada MD: [address], [place] [id number] , Ph. [facility] GC_GCBZW_[facility]* [id number] [facility] 2023-11-24 00:00:00 2023-11-24 00:00:00 OFFICE VISIT ESTAB PT LEVEL 4 [facility] [id number] [facility] 2023-11-03 00:00:00 2023-11-03 00:00:00 Raven Parada MD: [address], [address], [place] [phone] , Ph. [facility] GC_GCBZW_Betzy Reilly* [id number] [facility] 2023-09-20 00:00:00 2023-09-20 00:00:00 Outpatient GC_GCBZW_Ka diyala_S PRIV PRIV [id number] [facility] 2023-08-23 00:00:00 2023-08-23 00:00:00 Outpatient GC_GCBZW_Ka diyala_S PRIV PRIV [id number] [facility] 2023-08-22 00:00:00 2023-08-22 00:00:00 Outpatient GC_GCBZW_Ka diyala_S PRIV PRIV [id number] [facility] 2023-07-26 00:00:00 2023-07-26 00:00:00 Outpatient GC_GCBZW_Ka diyala_S PRIV PRIV [id number] [facility] 2023-07-17 00:00:00 2023-07-17 00:00:00 OFFICE VISIT [facility]AB [facility]EVEL 3 [facility] [id number] [facility] 2023-06-02 00:00:00 2023-06-02 00:00:00 Outpatient GC_GCBZW_Ka diyala_S PRIV PRIV [id number] [facility] 2023-06-02 00:00:00 2023-06-02 00:00:00 Outpatient GC_GCBZW_Ka diyala_S PRIV PRIV [id number] [facility] 2023-05-17 00:00:00 2023-05-17 00:00:00 Outpatient GC_GCBZW_Ka diyala_S PRIV PRIV [id number] [facility] 2023-05-17 00:00:00 2023-05-17 00:00:00 Outpatient GC_GCBZW_Ka diyala_S PRIV PRIV [id number] [facility] 2023-05-17 00:00:00 2023-05-17 00:00:00 Outpatient GC_GCBZW_Ka diyala_S PRIV PRIV [id number] [facility] 2023-04-19 00:00:00 2023-04-19 00:00:00 Outpatient GC_GCBZW_Ka diyala_S PRIV PRIV [id number] [facility] 2023-04-15 00:00:00 2023-04-15 00:00:00 (F/U) Follow Up Visit [facility] [id number] [facility] 2023-03-22 00:00:00 2023-03-22 00:00:00 Outpatient GC_GCBZW_Ka diyala_S PRIV PRIV [id number] [facility] 2023-01-28 00:00:00 2023-01-28 00:00:00 Outpatient GC_GCBZW_Ka diyala_S PRIV PRIV [id number] [facility] 2023-01-28 00:00:00 2023-01-28 00:00:00 Outpatient GC_GCBZW_Ka diyala_S PRIV PRIV [id number] [facility] 2023-01-14 00:00:00 2023-01-14 00:00:00 [facility] [id number] [facility] 2023-01-07 00:00:00 2023-01-07 00:00:00 Outpatient GC_GCBZW_Ka diyala_S PRIV PRIV [id number] [facility] 2023-01-07 00:00:00 2023-01-07 00:00:00 Outpatient GC_GCBZW_Ka diyala_S PRIV PRIV [id number] [facility] 2023-01-07 00:00:00 2023-01-07 00:00:00 Outpatient GC_GCBZW_Ka diyala_S PRIV PRIV [id number] [facility] 2023-01-07 00:00:00 2023-01-07 00:00:00 Outpatient GC_GCBZW_Ka diyala_S PRIV PRIV [id number] [facility] 2023-01-02 00:00:00 2023-01-02 00:00:00 Outpatient GC_GCBZW_Ka diyala_S PRIV PRIV [id number] [facility] 2022-10-08 00:00:00 2022-10-08 00:00:00 OFFICE VISIT ESTAB PT LEVEL 4 [facility] [id number] [facility] 2022-03-12 08:30:00 2022-03-12 08:30:00 Outpatient R ALFIE DOZIER [facility] [id number] [facility] 2022-03-07 00:00:00 2022-03-07 00:00:00 [facility] [id number] [facility] 2022-03-06 00:00:00 2022-03-06 00:00:00 Pre Visit Outreach Roxy Temlpe [id number] [id number] [id number] [facility] 2022-02-27 00:00:00 2022-02-27 00:00:[address] [facility] [id number] [id number] [id number] [facility] 2022-02-15 00:00:00 2022-02-15 00:00:[address] [facility] [id number] [id number] [id number] [id number] [facility] 2022-02-05 00:00:00 2022-02-05 00:00:00 OFFICE VISIT ESTAB PT LEVEL 4 [facility] [id number] [facility] 2022-01-28 00:00:00 2022-01-28 00:00:[address] [facility] [id number] [id number] [id number] [facility] 2022-01-16 00:00:00 2022-01-16 00:00:00 (TEL) STLMLC [facility] [id number] [facility] 2022-01-14 00:00:00 2022-01-14 00:00:00 OFFICE VISIT ESTAB PT LEVEL 4 [facility] [id number] [facility] 2021-11-08 00:00:00 2021-11-08 00:00:00 OFFICE VISIT ESTAB PT LEVEL 4 [facility] [id number] [facility] 2021-11-02 00:00:00 2021-11-02 00:00:00 (TEL) [facility] [id number] [facility] 2021-11-01 15:30:00 2021-11-01 15:30:00 Outpatient ALFIE WALLACE [facility] [id number] [facility] 2021-10-26 00:00:00 2021-10-26 00:00:00 (TEL) [facility]LMLC [facility] [id number] [facility] 2021-09-27 00:00:00 2021-09-27 00:00:00 (TEL) [facility] [id number] [facility] 2021-08-15 00:00:00 2021-08-15 00:00:00 Refill Alfie Dozier [facility] 1..840.114 350.1.13.10 4.2.7.2.686 [id number] 134 [id number] [facility] 2021-07-25 00:00:00 2021-07-25 00:00:00 Refill Alfie Dozier [facility] [id number] 350.1.13.10 4.2.7.2.686 [id number] 134 [id number] [facility] 2021-07-19 16:00:00 2021-07-19 16:00:00 Outpatient R ALFIE DOZIER [facility] [id number] [facility] 2021-07-19 00:00:00 2021-07-19 00:00:00 Alfie Hawthorne [facility] 1.114 350.1.13.10 4.2.7.2.686 [id number] [facility] 2021-06-12 00:00:00 2021-06-12 00:00:00 (IN/ASP) INJ ASP STLMLC [facility] [id number] [facility] 2021-06-05 00:00:00 2021-06-05 00:00:00 (IN/ASP) INJ ASP STLMLC [facility] [id number] [facility] 2021-05-28 00:00:00 2021-05-28 00:00:00 (IN/ASP) INJ ASP STLMLC [facility] [id number] [facility] 2021-04-27 00:00:00 2021-04-27 00:00:00 (TEL) [facility]LMLC [facility] [id number] [facility] 2021-04-17 00:00:00 2021-04-17 00:00:00 OFFICE VISIT ESTAB PT LEVEL 4 [facility] [id number] [facility] 2020-07-19 14:30:00 2020-07-19 14:30:00 Outpatient R ALFIE DOZIER [facility] [id number] [facility] 2020-07-19 00:00:00 2020-07-19 00:00:00 Orders Only Doctor Unassigned, [place] [facility] 1.114 350.1.13.10 4.2.7.2.686 [id number] 2020-07-19 00:00:00 2020-07-19 00:00:00 Orders Only Doctor Unassigned, [place] [facility] 1..114 350.1.13.10 4.2.7.2.686 [id number] [facility] 2020-01-17 11:00:00 2020-01-17 11:00:00 [facility] [id number] [facility] 2019-12-30 15:30:00 2019-12-30 15:30:00 [facility] [id number] [facility] 2019-12-22 11:00:00 2019-12-22 11:00:00 [facility] [id number] [facility] 2019-12-06 13:39:00 2019-12-06 13:39:00 [facility] [id number] [facility] 2019-11-10 14:42:00 2019-11-10 14:42:00 [facility] [id number] [facility] 2019-11-04 15:45:00 2019-11-04 15:45:00 [facility] [id number] [facility] 2019-09-06 15:30:00 2019-09-06 15:30:00 [facility] [id number] [facility] 2019-04-12 11:44:00 2019-04-12 11:44:00 [facility] [id number] [facility] 2019-02-23 16:22:00 2019-02-23 16:22:00 [facility] [id number] [facility] 2019-02-23 15:30:00 2019-02-23 15:30:00 [facility] [id number] [facility] 2019-02-09 13:26:00 2019-02-09 13:26:00 [facility] [id number] [facility] 2019-02-03 10:10:00 2019-02-03 10:10:00 [facility] [id number] [facility] 2019-01-12 16:53:00 2019-01-12 16:53:00 [facility] [id number] [facility] 2019-01-12 15:00:00 2019-01-12 15:00:00 [facility] [id number] [facility] 2019-01-05 12:43:00 2019-01-05 12:43:00 [facility] [id number] [facility] 2019-01-04 16:36:00 2019-01-04 16:36:00 [facility] [id number] [facility] 2018-12-17 10:00:00 2018-12-17 10:00:00 [facility] [id number] [facility] 2018-12-08 08:40:00 2018-12-08 08:40:00 [facility] [id number] [facility] 2018-11-27 10:00:00 2018-11-27 10:00:00 [facility] [id number] [facility] 2018-10-26 15:30:00 2018-10-26 15:30:00 [facility] [id number] [facility] 2018-09-14 15:30:00 2018-09-14 15:30:00 [facility] [id number] [facility] 2018-07-17 08:30:00 2018-07-17 08:30:00 [facility] [id number] [facility] 2018-07-09 20:39:00 2018-07-09 20:39:00 [facility] [id number] [facility] 2018-07-08 12:30:00 2018-07-08 12:30:00 [facility] [id number] [facility] 2018-07-07 15:00:00 2018-07-07 15:00:00 [facility] [id number] [facility] 2018-02-17 08:30:00 2018-02-17 08:30:00 [facility] [id number] [facility] Results Test Description Test Time Test Comments Results Result Co mments Source [facility], [id number] 15:43:00* Test Item Value Reference Range Interpretation Comme nts Leukocytes (test code = Leukocytes) Negative Nitrite (test code = Nitrite) negative Urobilinogen (test code = Urobilinogen) Normal Protein (test code = Protein) Trace pH (test code = pH) 6.0 Blood (test code = Blood) Negative Specific [place] (test code = Specific [place]) 1.020 Ketone (test code = Ketone) Negative Bilirubin (test code = Bilirubin) Negative Glucose (test code = Glucose) Negative Appearance (test code = Appearance) Slightly Cloudy Color (test code = Color) Yellow [facility] Medical[facility] [id number] 00:00:00* Test Item Value Reference Range Interpretation Comme nts dfr (A1, A5), sul (1,2) (anika t code = dfr (A1, A5), sul (1,2)) 23.779 ppm 23.000-27.000 A shv, kpc groups (test code = shv, kpc groups) 18.379 ppm 23.000-31.647 A tet B, tet M (test code = te t B, tet M) 23.735 ppm 23.000-27.778 A acinetobacter baumannii (anika t code = acinetobacter baumannii) 0.000 ppm 19.961-24.689 citrobacter freundii (test c ode = citrobacter freundii) 0.000 ppm 23.000-31.881 enterobacter aerogenes, cloa (test code = enterobacter aerogenes, cloacae) 0.000 ppm 23.000-31.535 enterococcus faecalis, faeci um (test code = enterococcus faecalis, faecium) 0.000 ppm 26.000-31.575 escherichia coli (test code = escherichia coli) 16.500 ppm 23.000-28.500 A klebsiella pneumoniae, oxyto ca (test code = klebsiella pneumoniae, oxytoca) 18.517 ppm 23.000-30.500 A morganella morganii (test co de = morganella morganii) 0.000 ppm 19.961-24.689 proteus mirabilis, vulgaris (test code = proteus mirabilis, vulgaris) 0.000 ppm 23.000-28.500 pseudomonas aeruginosa (test code = pseudomonas aeruginosa) 0.000 ppm 23.000-28.500 staphylococcus aureus (test code = staphylococcus aureus) 0.000 ppm 26.000-30.902 streptococcus agalactiae (gr oup B strep) (test code = streptococcus agalactiae (group B strep)) 0.000 ppm 26.000-32.222 angie albicans, parapsilos is, tropicalis (test code = angie albicans, parapsilosis, tropicalis) 0.000 ppm 19.961-30.770 angie glabrata (test code = angie glabrata) 0.000 ppm 23.000-32.138 angie krusei (test code = angie krusei) 0.000 ppm 23.000-32.271 serratia marcescens (test co de = serratia marcescens) 0.000 ppm 23.000-31.204 streptococcus pyogenes (grou p A strep) (test code = streptococcus pyogenes (group A strep)) 0.000 ppm 19.961-24.689 staphylococcus saprophyticus (test code = staphylococcus saprophyticus) 0.000 ppm 19.961-24.689 staphylococcus epidermidis, haemolyticus, lugdunensis (test code = staphylococcus epidermidis, haemolyticus, lugdunensis) 0.000 ppm 19.961-24.689 [facility] Medicalurinalysis, [id number] 15:20:00* Test Item Value Reference Range Interpretation Comme nts Leukocytes (test code = Leukocytes) 2+ Nitrite (test code = Nitrite) positive Urobilinogen (test code = Urobilinogen) Normal Protein (test code = Protein) Negative pH (test code = pH) 6.0 Blood (test code = Blood) Negative Specific [place] (test code = Specific [place]) 1.015 Ketone (test code = Ketone) Negative Bilirubin (test code = Bilirubin) Negative Glucose (test code = Glucose) Negative Appearance (test code = Appearance) Slightly Cloudy Color (test code = Color) Yellow [facility] Medicalinfectious disease [id number] 00:00:00* Test Item Value Reference Range Interpretation Comme nts acinetobacter baumannii (anika t code = acinetobacter baumannii) 0.000 ppm 19.961-24.689 citrobacter freundii (test c ode = citrobacter freundii) 0.000 ppm 23.000-31.881 enterobacter aerogenes, cloa (test code = enterobacter aerogenes, cloacae) 0.000 ppm 23.000-31.535 enterococcus faecalis, faeci um (test code = enterococcus faecalis, faecium) 0.000 ppm 26.000-31.575 escherichia coli (test code = escherichia coli) 0.000 ppm 23.000-28.500 klebsiella pneumoniae, oxyto ca (test code = klebsiella pneumoniae, oxytoca) 0.000 ppm 23.000-30.500 morganella morganii (test co de = morganella morganii) 0.000 ppm 19.961-24.689 proteus mirabilis, vulgaris (test code = proteus mirabilis, vulgaris) 0.000 ppm 23.000-28.500 pseudomonas aeruginosa (test code = pseudomonas aeruginosa) 0.000 ppm 23.000-28.500 staphylococcus aureus (test code = staphylococcus aureus) 0.000 ppm 26.000-30.902 streptococcus agalactiae (gr oup B strep) (test code = streptococcus agalactiae (group B strep)) 0.000 ppm 26.000-32.222 angie albicans, parapsilos is, tropicalis (test code = angie albicans, parapsilosis, tropicalis) 0.000 ppm 19.961-30.770 angie glabrata (test code = angie glabrata) 0.000 ppm 23.000-32.138 angie krusei (test code = angie krusei) 0.000 ppm 23.000-32.271 serratia marcescens (test co de = serratia marcescens) 0.000 ppm 23.000-31.204 streptococcus pyogenes (grou p A strep) (test code = streptococcus pyogenes (group A strep)) 0.000 ppm 19.961-24.689 staphylococcus saprophyticus (test code = staphylococcus saprophyticus) 0.000 ppm 19.961-24.689 staphylococcus epidermidis, haemolyticus, lugdunensis (test code = staphylococcus epidermidis, haemolyticus, lugdunensis) 0.000 ppm 19.961-24.689 [facility] Medicalurinalysis, [id number] 13:46:00* Test Item Value Reference Range Interpretation Comme nts Leukocytes (test code = Leukocytes) Negative Nitrite (test code = Nitrite) negative Urobilinogen (test code = Urobilinogen) Normal Protein (test code = Protein) Negative pH (test code = pH) 6.0 Blood (test code = Blood) Negative Specific [place] (test code = Specific [place]) 1.015 Ketone (test code = Ketone) Negative Bilirubin (test code = Bilirubin) Negative Glucose (test code = Glucose) Negative Appearance (test code = Appearance) Clear Color (test code = Color) Yellow [facility] macro (dipstick) panel - [id number] 07:30:54* Test Item Value Reference Range Interpretation Comme nts Leukocytes (test code = Leukocytes) 3+ Nitrite (test code = Nitrite) positive Urobilinogen (test code = Urobilinogen) Normal Protein (test code = Protein) Negative pH (test code = pH) 6.0 Blood (test code = Blood) Negative Specific [place] (test code = Specific [place]) 1.020 Ketone (test code = Ketone) Negative Bilirubin (test code = Bilirubin) Negative Glucose (test code = Glucose) Negative Appearance (test code = Appearance) Clear Color (test code = Color) Yellow [facility] MedicalUrinalysis macro (dipstick) panel - [id number] 13:58:00* Test Item Value Reference Range Interpretation Comme nts Leukocytes (test code = Leukocytes) Negative Nitrite (test code = Nitrite) negative Urobilinogen (test code = Urobilinogen) Normal Protein (test code = Protein) Negative pH (test code = pH) 6.0 Blood (test code = Blood) Negative Specific [place] (test code = Specific [place]) 1.025 Ketone (test code = Ketone) Negative Bilirubin (test code = Bilirubin) Negative Glucose (test code = Glucose) Negative Appearance (test code = Appearance) Slightly Cloudy Color (test code = Color) Dark Yellow [facility]
[2024-07-27 18:45] LABS: Absolute Lymphocytes (CBC) 0.4 K/uL (0.7-4.9); Absolute Monocytes 0.5 K/uL (0.1-1.3); Absolute Neutrophil 14.8 K/uL (1.8-8.0); Basophils % 0.1 % (0-1.3); Eosinophils % 0.1 % (0-4.4); Hemoglobin 14.5 g/dL (12.0-15.0); Lymphocytes % 2.3 % (15.3-44.8); MCHC 32.9 g/dL (32.0-36.0); MCV 91.3 fL (80-100); MPV 7.3 fL (7.6-11.3); Monocytes % 3.2 % (3.3-12.3); Neutrophils % 94.3 % (41.7-73.7); Nucleated Red Blood Cells % 0.1 % (0-0); Platelets 233 thou/uL (152-406); RBC Red Blood Cell Count 4.81 M/uL (3.86-4.86); Red Cell Distribution Width 13.5 % (12.1-15.2)
[2024-07-27 19:00] LABS: SARS-CoV-2 Antigen CONTROL BLUE LINE VIS/BG OK; SARS-CoV-2 Antigen Rapid Res Negative (Negative)
[2024-07-27 19:04] LABS: Albumin/Globulin Ratio 0.7 (1.1-1.8); Anion Gap 11.1 mEq/L (5.0-15.0); Bilirubin Total 0.7 mg/dL (0.2-1.0); Globulin 4.6 g/dL (2.3-3.5); Potassium 4.1 mEq/L (3.5-5.1); Protein, Total 7.6 g/dL (6.4-8.2)
[2024-07-27 20:04] LABS: Blood Morphology Comment NOT SEEN (NOT SEEN); Platelet Estimate ADEQ; White Blood Cell Scan OK (OK)
--- NOTE | 2024-07-27 20:36 | EDPHYS ---
Physician Documentation [facility] Name: Erin Bray Age: 69 yrs Sex: Female : 1955 Arrival Date: 07/27/2024 Time: 17:48 Bed DX3 Private MD: ED Physician Jean Moffett HPI: 07/27 23:14 This 69 yrs old Female presents to ER via EMS with complaints of Vomiting/Diarrhea. kb 23:14 Pt is a 69 year old female who presents for n/v/d that started this morning. Son lives kb with her and has similar symptoms. Unable to tolerate anything by mouth. Denies abd pain, fever. . Historical: - Allergies: 18:46 No Known Allergies; ko1 - PMHx: 18:46 diabetes mellitus; High Cholesterol; Hypothyroidism; night sweats; seasonal allergies; ko1 stress incontence; - PSHx: 18:46 Left wrist sx; right knee sx; Right rotator sx; ko1 - Immunization history:: Adult Immunizations up to date. - Infectious Disease History:: Denies. - Social history:: Smoking status: Patient denies any tobacco usage or history of. ROS: 23:14 Constitutional: As per HPI kb Exam: 23:14 Constitutional: This is a well developed, well nourished patient who is awake, alert, kb and in no acute distress. Head/Face: Normocephalic, atraumatic. ENT: Moist Mucous membranes Cardiovascular: Regular rate Respiratory: Respirations even and unlabored. No increased work of breathing. Talking in full sentences Abdomen/GI: Soft, non-tender. No distention Skin: Warm, dry with normal turgor. Normal color. MS/ Extremity: Pulses equal, no cyanosis. Neurovascular intact. Full, normal range of motion. Neuro: Awake and alert, GCS 15, oriented to person, place, time, and situation. Vital Signs: 18:00 BP 143 / 75; Pulse 85; Resp 17; Temp 98.9; Pulse Ox 97% ; ko1 20:13 BP 131 / 68; Pulse 85; Resp 18; Pulse Ox 97% ; rv1 MDM: 17:53 Medical Screening Exam initiated kb 23:17 Differential diagnosis: Nonspecific abd pain, gastritis, viral gastroenteritis. Data kb reviewed: vital signs, nurses notes. Test considered but Not performed: CT: ct abd considered but pt has no abd pain or tenderness, son has similar symptoms. Symptoms resolved after treatment and pt tolerating po intake prior to discharge. . Historians other than the Patient: EMS: [facility]. Counseling: I had a detailed discussion with the patient and/or guardian regarding the historical points, exam findings, and any diagnostic results supporting the discharge/admit diagnosis, lab results, the need for outpatient follow up, a family practitioner, to return to the emergency department if symptoms worsen or persist or if there are any questions or concerns that arise at home. 07/27 17:54 Order name: CBC with Diff; Complete Time: 20:05 kb 07/27 17:54 Order name: CMP; Complete Time: 19:19 kb 07/27 17:54 Order name: Lipase; Complete Time: 19:19 kb 07/27 17:54 Order name: Flu; Complete Time: 19:01 kb 07/27 17:54 Order name: SARS-COV-2 Antigen Rapid; Complete Time: 19:01 kb 07/27 20:04 Order name: CBC Smear Scan; Complete Time: 20:05 EDMS 07/27 17:54 Order name: IV Saline Lock; Complete Time: 18:47 kb 07/27 17:54 Order name: Labs collected and sent; Complete Time: 18:47 kb 07/27 20:02 Order name: PO challenge; Complete Time: 20:17 kb Administered Medications: No medications were administered Disposition Summary: 07/27/24 20:36 Discharge Ordered Notes: Location: Home kb Condition: Stable kb Diagnosis - Other specified noninfective gastroenteritis and colitis kb Followup: kb - With: Emergency Department - When: As needed - Reason: Worsening of condition Followup: kb - With: Private Physician - When: 2 - 3 days - Reason: Recheck today's complaints, Continuance of care, Re-evaluation by your physician Discharge Instructions: - Discharge Summary Sheet kb - Viral Gastroenteritis, Adult, [id number] kb Forms: - Medication Reconciliation Form kb - Antibiotic Education kb - Prescription Opioid Use kb - Patient Portal Instructions kb - Leadership Thank You Letter kb Prescriptions: - Zofran 4 mg Oral tablet - take 1 tablet ORAL route every 6 hours As needed; 12 tablet; Refills: 0, kb Product Selection Permitted Addendum: 07/29/2024 15:28 I was immediately available on-site in the Emergency Department for consultation in the m care of the patient. Signatures: Dispatcher [employer] Mel Win, JACKELYN CAPONE-Jean Manley DO DO ms3 Rupali Henderson, RN RN ko1
--- NOTE | 2024-07-27 20:36 | ER ---
Nurse's Notes [facility] [place] Name: Erin Bray Age: 69 yrs Sex: Female : 1955 Arrival Date: 07/27/2024 Time: 17:48 Bed DX3 Private MD: Diagnosis: Other specified noninfective gastroenteritis and colitis Presentation: 07/27 18:00 Chief complaint: EMS states: vomiting and diarrhea started today, felt to weak to ko1 drive. Coronavirus screen: diarrhea, vomiting. Ebola Screen: No symptoms or risks identified at this time. Initial Sepsis Screen: Does the patient meet any 2 criteria? No. Patient's initial sepsis screen is negative. Does the patient have a suspected source of infection? No. Patient's initial sepsis screen is negative. Risk Assessment: Do you want to hurt yourself or someone else? Patient reports no desire to harm self or others. Onset of symptoms was July 27, 2024. 18:00 Method Of Arrival: EMS: [facility] ko1 18:00 Acuity: YOUNG 3 ko1 Triage Assessment: 18:46 General: Appears in no apparent distress. Behavior is calm, cooperative, appropriate ko1 for age. Pain: Denies pain. Historical: - Allergies: 18:46 No Known Allergies; ko1 - PMHx: 18:46 diabetes mellitus; High Cholesterol; Hypothyroidism; night sweats; seasonal allergies; ko1 stress incontence; - PSHx: 18:46 Left wrist sx; right knee sx; Right rotator sx; ko1 - Immunization history:: Adult Immunizations up to date. - Infectious Disease History:: Denies. - Social history:: Smoking status: Patient denies any tobacco usage or history of. Screenin:51 [facility] ED Fall Risk Assessment (Adult) History of falling in the last 3 months, lg3 including since admission No falls in past 3 months (0 pts) Confusion or Disorientation No (0 pts) Intoxicated or Sedated No (0 pts) Impaired Gait No (0 pts) Mobility Assist Device Used No (0 pt) Altered Elimination No (0 pt) Score/Fall Risk Level 0 - 2 = Low Risk Oriented to surroundings, Maintained a safe environment, Educated pt \T\ family on fall prevention, incl call for assistance when getting out of bed, Assessed \T\ reinforced patient's understanding of fall precautions. Abuse screen: Denies threats or abuse. Denies injuries from another. Nutritional screening: No deficits noted. Tuberculosis screening: No symptoms or risk factors identified. Assessment: 20:51 General: Appears in no apparent distress. comfortable, Behavior is calm, cooperative. lg3 Pain: Denies pain. Neuro: No deficits noted. Yanez Agitation-Sedation Scale (RASS): 0 - Alert and Calm Level of Consciousness is awake, alert, obeys commands, Oriented to person, place, time, situation. Cardiovascular: No deficits noted. Denies chest pain, shortness of breath, Capillary refill < 3 seconds Clubbing of nail beds is absent JVD is absent Patient's skin is warm and dry. Respiratory: No deficits noted. Airway is patent Respiratory effort is even, unlabored, Respiratory pattern is regular, symmetrical. GI: Abdomen is round non-distended, obese, Reports diarrhea, nausea, vomiting. : No signs and/or symptoms were reported regarding the genitourinary system. EENT: No deficits noted. No signs and/or symptoms were reported regarding the EENT system. Derm: No deficits noted. No signs and/or symptoms reported regarding the dermatologic system. Skin is intact, is healthy with good turgor, Skin is dry, Skin is normal, Skin temperature is warm. Musculoskeletal: No deficits noted. No signs and/or symptoms reported regarding the musculoskeletal system. Circulation, motion, and sensation intact. Range of motion: intact in all extremities. Vital Signs: 18:00 BP 143 / 75; Pulse 85; Resp 17; Temp 98.9; Pulse Ox 97% ; ko1 20:13 BP 131 / 68; Pulse 85; Resp 18; Pulse Ox 97% ; rv1 ED Course: 17:53 Patient arrived in ED. kb 17:53 [facility]C [facility] kb 17:53 Jean Moffett DO is Attending Physician. kb 18:46 Triage completed. ko1 18:46 Arm band placed on right wrist. Patient placed in waiting room, Patient notified of ko1 wait time. 18:47 SARS-COV-2 Antigen Rapid Sent. bc6 18:47 Flu Sent. bc6 18:47 CBC with Diff Sent. bc6 18:47 CMP Sent. bc6 18:47 Lipase Sent. bc6 18:47 Initial lab(s) drawn, by me, sent to lab. COVID swab sent to lab. Flu and/or RSV swab bc6 sent to lab. 20:51 No provider procedures requiring assistance completed. IV discontinued, intact, lg3 bleeding controlled, No redness/swelling at site. Pressure dressing applied. 20:51 Patient has correct armband on for positive identification. Family accompanied patient. lg3 Administered Medications: No medications were administered Medication: 20:51 VIS not applicable for this client. lg3 Outcome: 20:36 Discharge ordered by . tien 20:51 Discharged to home ambulatory, with family, lg3 20:51 Condition: stable 20:51 Discharge instructions given to patient, Instructed on discharge instructions, follow up and referral plans. medication usage, Demonstrated understanding of instructions, follow-up care, medications, Prescriptions given X 1, 20:54 Patient left the ED. lg3 Signatures: Mel Reilly, BE[employer] FORMING MACHINE SET UP OPERATOR-C BEAD FORMING MACHINE SET UP OPERATOR-CkAlejandra Ayala RN RN lg3 Rupali Henderson RN RN ko1 Aimee Mayo rv1 Susan Amaral bc6
[2024-07-27 21:05] VITALS: TEMP 98.9; O2SAT 97
[2024-07-27 21:06] VITALS: BP 131/68
== END 2024-07-27 20:54 | disposition home or self-care (01) ==
LOC: ER 17:48
DX: K52.89 Other specified noninfective gastroenteritis and colitis (principal); Z11.52 Encounter for screening for COVID-19
CPT/HCPCS: 36415; 80053; 83690; 85025; 87804; 87811; 99284